=== PATIENT | male | born 1970 | race Caucasian/White ===

== ENCOUNTER 2017-02-06 23:12 | Inpatient (IN) | payer MEDICARE ==
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
[2017-02-07] MEDS ORDERED: MAGNESIUM HYDROXIDE 2,400 MG/10 ML CUP PO PRN (05:34)
[2017-02-07] MEDS ORDERED: MAG HYDROX/AL HYDROX/SIMETH 30 ML CUP PO PRN (05:34)
[2017-02-07] MEDS ORDERED: ZIPRASIDONE 20 MG VIAL IM PRN (05:34)
[2017-02-07] MEDS: LORazepam 1 MG TAB PO PRN ×2 (09:53→19:04)
[2017-02-07] MEDS: amLODIPine 10 MG TAB PO SCH (09:53)
[2017-02-07] MEDS: CHLORTHALIDONE 25 MG TAB PO SCH (09:53)
[2017-02-07] MEDS: NICOTINE 14MG/24HR PATCH TRANSDERM SCH (09:54)
[2017-02-07] MEDS: ATENOLOL 50 MG TAB PO SCH (09:54)
[2017-02-07] MEDS: HALOPERIDOL 5 MG TAB PO SCH (20:51)
[2017-02-07] MEDS: BENZTROPINE MESYLATE 1 MG TAB PO SCH (20:51)
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
[2017-02-08] MEDS: NICOTINE 14MG/24HR PATCH TRANSDERM SCH (09:13)
[2017-02-08] MEDS: CHLORTHALIDONE 25 MG TAB PO SCH (09:15)
[2017-02-08] MEDS: BENZTROPINE MESYLATE 1 MG TAB PO SCH ×2 (09:15→20:50)
[2017-02-08] MEDS: ATENOLOL 50 MG TAB PO SCH (09:15)
[2017-02-08] MEDS: amLODIPine 10 MG TAB PO SCH (09:15)
--- NOTE | 2017-02-08 09:15 | P.PN ---
Progress Note - Text Interval history: The patient is found at the medication window he follows me to an interview room. He reports that he slept last night appetite is stable. He reports attending some groups. He reports being compliant with medication. He is endorsing no side effects from his medication. He endorses no feelings of anger or irritability. Mental status exam: The patient is a male appearing his stated age he has long hair with frontal balding. He is dressed in his own clothing wearing a T-shirt and pajama pants. Eye contact is appropriate. He seated calmly in the chair he demonstrates no verbal or physical aggressiveness. He is endorsing no auditory or visual hallucinations he is endorsing no specific delusions there is no overt evidence of psychosis although he could be underreporting symptoms. He does not present hypomanic or manic. Affect is constricted. He does have spontaneous speech that is nonpressured and he does appropriately answer questions asked of him. He remains oriented to person place and date. Grooming is fair hygiene's impaired. He demonstrates no abnormal involuntary movements. Plan: The patient will continue on the Haldol and Cogentin. The presumption is is that he was not appropriately taking his medication as an outpatient although he states he did. We will continue to monitor him for safety and encourage his participation in the milieu. Vital signs reviewed they're within normal limits.
[2017-02-08] MEDS: LORazepam 1 MG TAB PO PRN ×2 (09:16→17:52)
[2017-02-08] MEDS: HALOPERIDOL 5 MG TAB PO SCH ×2 (09:45→20:50)
[2017-02-08 12:11] LABS: Basophils # (A) 0.1 k/uL (0-0.2); Basophils % (A) 1 %; CH 31.7; CHCM 34.2; Eosinophils # (A) 0.2 k/uL (0-0.7); Eosinophils % (A) 3 %; HCT 46.9 % (39.0-53.0); HDW 2.37; HGB 15.9 gm/dL (13.0-17.5); Luc # (Auto) 0.27; Luc % (Auto) 4; Lymphocytes # (A) 2.4 k/uL (1.0-4.8); Lymphocytes % (A) 31 %; MCH 31.5 pg (25.0-35.0); MCHC 33.9 g/dL (31.0-37.0); MCV 93.1 fL (80.0-100.0); Mean Platelet Volume 9.2; Monocytes # (A) 0.6 k/uL (0-1.0); Monocytes % (A) 8 %; Neutrophils # (A) 4.2 k/uL (1.3-7.7); Neutrophils % (A) 53 %; RBC 5.04 m/uL (4.30-5.90); RDW 12.8 % (11.5-15.5); WBC 7.8 k/uL (3.8-10.6); WBC (Perox) 7.41
[2017-02-08 12:24] LABS: ALT 39 U/L (21-72); AST 34 U/L (17-59); Alkaline Phosphatase 71 U/L (38-126); Anion Gap 11 mmol/L; Blood Urea Nitrogen 18 mg/dL (9-20); Calcium 9.8 mg/dL (8.4-10.2); Carbon Dioxide 29 mmol/L (22-30); Chloride 102 mmol/L (98-107); Glucose 86 mg/dL (74-99); Non-African American GFR(MDRD) >60 (>60 ml/min/1.73 sqM); Potassium 4.4 mmol/L (3.5-5.1); Sodium 142 mmol/L (137-145); Total Bilirubin 0.7 mg/dL (0.2-1.3); Total Protein 7.7 g/dL (6.3-8.2)
--- NOTE | 2017-02-08 12:24 | CONS ---
DATE OF CONSULTATION: CHIEF COMPLAINT: Schizophrenia and acute psychosis. HISTORY OF PRESENT ILLNESS: This is another admission for this 47-year-old white male. He has a long standing history of schizophrenia. He does well when he is on his medications. For some reason, apparently they were stopped. He also has a history of ADD, COPD and hypertension. REVIEW OF SYSTEMS: He has no current complaints of headaches, chest pain, abdominal pain, urinary complaints, etc. Past medical history, family history and personal and social histories reveal that he is not allergic to any medication and he is normally on benztropine 1 mg once a day, Adderall 20 mg twice a day, Tenoretic 50/25 one a day, Norvasc 10 once a day, Benazepril 20 mg once a day, haloperidol 5 mg twice a day, vitamin D and Klonopin 0.5 t.i.d. p.r.n. Otherwise has no medical problems. He does smoke heavily. PHYSICAL EXAMINATION: VITAL SIGNS: Motor 118/70, pulse of 80, respirations 16. He is afebrile. GENERAL: Appeared to be well-developed, well-nourished no acute distress. Skin color is normal. Skin is warm and dry. Lymph nodes are not enlarged. Head, ears, eyes, nose, mouth, and throat were normal. Neck veins not distended. Thyroid is not enlarged. Chest is clear. Cardiac exam is normal and there are no murmurs. Abdomen is soft, nontender with no masses. Extremities are normal. Neurologically, he is intact. IMPRESSION: 1. Acute psychosis. 2. Schizophrenia. 3. Hypertension. 4. Chronic obstructive pulmonary disease. RECOMMENDATION: None.
[2017-02-09] MEDS: NICOTINE 14MG/24HR PATCH TRANSDERM SCH (08:41)
[2017-02-09] MEDS: ATENOLOL 50 MG TAB PO SCH (08:42)
[2017-02-09] MEDS: CHLORTHALIDONE 25 MG TAB PO SCH (08:42)
[2017-02-09] MEDS: HALOPERIDOL 5 MG TAB PO SCH (08:42)
[2017-02-09] MEDS: amLODIPine 10 MG TAB PO SCH (08:42)
[2017-02-09] MEDS: BENZTROPINE MESYLATE 1 MG TAB PO SCH ×2 (08:42→21:17)
[2017-02-09] MEDS: ACETAMINOPHEN TAB 325 MG TAB PO PRN (09:03)
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
[2017-02-09] MEDS: LORazepam 1 MG TAB PO PRN (14:18)
[2017-02-09] MEDS: HALOPERIDOL 2 MG TAB PO SCH (21:17)
[2017-02-10] MEDS: ACETAMINOPHEN TAB 325 MG TAB PO PRN ×4 (00:17→18:36)
[2017-02-10] MEDS: CHLORTHALIDONE 25 MG TAB PO SCH (08:46)
[2017-02-10] MEDS: ATENOLOL 50 MG TAB PO SCH (08:46)
[2017-02-10] MEDS: BENZTROPINE MESYLATE 1 MG TAB PO SCH ×2 (08:46→20:36)
[2017-02-10] MEDS: HALOPERIDOL 2 MG TAB PO SCH ×2 (08:46→20:36)
[2017-02-10] MEDS: amLODIPine 10 MG TAB PO SCH (08:46)
[2017-02-10] MEDS: NICOTINE 14MG/24HR PATCH TRANSDERM SCH ×2 (08:49→10:11)
[2017-02-10] MEDS: LORazepam 1 MG TAB PO PRN (10:11)
--- NOTE | 2017-02-10 12:01 | P.PN ---
Progress Note - Text CLINICAL PROBLEMS: He is a 47-year-old man with history of schizophrenia and poor compliance with psychiatric treatment. He presented to unit under a court orders for examination but agreed to a voluntary admission. 24 HOUR EVENTS: He slept 5 hours last night. Appetite is been compliant with prescribed medications and posed no management problem. EXAMINATION: He was preoccupied about discharge. He asked when he can be discharged and assured me to continue with his oral medications. He was casually dressed but still malodorous. He made eye contact and attended the interview. He had a blunted but bright facial expression. We talked about transition from oral to long-acting and haloperidol. He stated that he would rather "take the pills" and doesn't want "injections". He minimizes the problems prior to admission alleging that his father initiated the conflict that led his sister to complete the Petition and requested the court order for examination. He was restless but he was not tremulous or fidgety. His speech was spontaneous with normal rate, rhythm and volume. His affect was blunted but stable and appropriate. He denied suicidal ideation or wishes. He denied homicidal ideation. He denied feeling hopeless, helpless or worthless. He ruminated about discharge and the cost of his prescription medications. He wanted assurance that I wouldn't be prescribing a generic haloperidol. He denied ideas of reference, thought insertion, thought broadcasting or thought control. He denied experiencing auditory or visual hallucinations and did not appear to be responding to internal stimuli. He shows poverty of content of of thought. PERTINENT DATA: His blood pressure this morning was 135/75. The licensed clinical social worker has not received a return call from his guardian. ASSESSMENT: He is denying positive symptoms of his illness but has continued negative symptoms including poverty of content. Overall, he appears moderately mentally ill and moderately improved from admission. He is less tremulous and akathetic since we decreased the Haldol to 8 mg per day. We need to guardian to begin the application for Medicaid in order to have him eligible for community mental health services. PLAN: Continue inpatient hospitalization. crop farm workers will continue to contact his guardian. Continue Haldol 4 mg twice a day and continued discussion to transition from oral to Haldol decanoate. Continue his hypertensive medications-Norvasc 10 mg daily, Tenormin 50 mg daily and hygroton 25 mg daily. Encourage continued participation in therapeutic groups and activities. Evaluate clinical status and response to treatment on a daily basis.
[2017-02-11] MEDS: LORazepam 1 MG TAB PO PRN ×3 (01:19→20:03)
[2017-02-11] MEDS: amLODIPine 10 MG TAB PO SCH (09:41)
[2017-02-11] MEDS: ATENOLOL 50 MG TAB PO SCH (09:41)
[2017-02-11] MEDS: HALOPERIDOL 2 MG TAB PO SCH ×2 (09:41→20:03)
[2017-02-11] MEDS: CHLORTHALIDONE 25 MG TAB PO SCH (09:41)
[2017-02-11] MEDS: NICOTINE 14MG/24HR PATCH TRANSDERM SCH (09:42)
[2017-02-11] MEDS: BENZTROPINE MESYLATE 1 MG TAB PO SCH ×2 (09:42→20:03)
--- NOTE | 2017-02-11 12:46 | P.PN ---
Progress Note - Text CLINICAL PROBLEMS: Schizophrenia, poor compliance with mental health treatment 24 HOUR EVENTS: He has been compliant with prescribed psychotropic medications. He is been no management problem and displayed no episodes of behavioral dyscontrol. He attended only one activity therapy group yesterday. He slept 6 hours last night. EXAMINATION: He presented as a casually groomed 47-year-old male who was pleasant on approach. He made eye contact and appeared to attend to interview. No distinguishing features or prominent physical abnormalities. He had a blunted facial expression. He was alert and oriented to person, place and time. He showed slight psychomotor retardation but no abnormal involuntary movements. He had no apparent tremor and he was not restless. His speech was spontaneous with decreased volume and rhythm. His affect was blunted but stable and appropriate. He denied suicidal ideation or wishes. He denied feeling hopeless, helpless or worthless. He did not express phobias, ideas reference, delusional thoughts or paranoid ideation. His thinking was concrete but his associations are coherent and logical. He denied hallucinations and did not appear to be responding to internal stimuli. He continues to remain resistant to a long-acting injectable antipsychotic PERTINENT DATA: His blood pressure this morning was 135/75 and 109/57 ASSESSMENT: He continued show negative symptoms of schizophrenia but no overt psychotic symptoms. Overall he appears mildly mentally ill and much improved from admission. PLAN: bunker worker to arrange for aftercare based on his Medicaid insurance to medical and most likely he will follow-up with [facility] outpatient mental health clinic. Continue Haldol 4 mg twice a day for treatment of schizophrenia. Continue Norvasc 10 mg daily, Tenormin 50 mg daily and Hygroton 25 mg daily for treatment of hypertension. We anticipate discharge tomorrow 02/12/2017. Encourage participation in therapeutic groups and activities. Evaluate clinical status response to treatment on a daily basis.
[2017-02-11] MEDS: ACETAMINOPHEN TAB 325 MG TAB PO PRN (16:26)
[2017-02-12 06:40] VITALS: BP 103/58; PULSE 59; RESP 16; TEMP 97.9
[2017-02-12] MEDS: NICOTINE 14MG/24HR PATCH TRANSDERM SCH (08:23)
[2017-02-12] MEDS: HALOPERIDOL 2 MG TAB PO SCH (08:23)
[2017-02-12] MEDS: CHLORTHALIDONE 25 MG TAB PO SCH (08:24)
[2017-02-12] MEDS: amLODIPine 10 MG TAB PO SCH (08:24)
[2017-02-12] MEDS: BENZTROPINE MESYLATE 1 MG TAB PO SCH (08:24)
[2017-02-12] MEDS: ATENOLOL 50 MG TAB PO SCH (08:24)
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
== END 2017-02-12 10:48 | disposition home or self-care (01) | DRG 885 ==
LOC: EC 23:12 → 3MHU 02-07 03:21
PROVIDERS: ADMIT Psychiatry & Neurology Psychiatry; ATTEND Psychiatry & Neurology Psychiatry
DX: F20.9 Schizophrenia, unspecified (principal); Z91.14 Patient's other noncompliance with medication regimen; I10 Essential (primary) hypertension; F17.200 Nicotine dependence, unspecified, uncomplicated; J44.9 Chronic obstructive pulmonary disease, unspecified; Z79.899 Other long term (current) drug therapy
CPT/HCPCS: 80053; 80306; 82075; 84443; 85025

== ENCOUNTER 2019-05-10 16:43 | Inpatient (IN) | payer MEDICARE ==
--- NOTE | 2019-05-10 17:36 | ED ---
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 Patient reportedly has a history of schizophrenia has been feeling paranoid, family is concerned about his well-being and home life. Patient himself has no complaints though information is very limited because he is paranoid and delusional at this time. He denies any drug or alcohol abuse. Denies any physical complaints - Related Data Home Medications Medication Instructions Recorded Confirmed No Known Home Medications 05/10/19 05/10/19 Allergies Allergy/AdvReac Type Severity Reaction Status Date / Time Unable to Assess Allergy Verified 05/10/19 16:50 Review of Systems ROS Statement: Those systems with pertinent positive or pertinent negative responses have been documented in the HPI. ROS Other: All systems not noted in ROS Statement are negative. Past Medical History Past Medical History: Hypertension History of Any Multi-Drug Resistant Organisms: None Reported Past Surgical History: No Surgical Hx Reported Past Psychological History: Anxiety, Depression, Schizophrenia Smoking Status: Current every day smoker General Exam Limitations: no limitations General appearance: alert, in no apparent distress Head exam: Present: atraumatic, normocephalic, normal inspection Eye exam: Present: normal appearance, PERRL, EOMI. Absent: scleral icterus, conjunctival injection, periorbital swelling ENT exam: Present: normal exam, normal oropharynx, mucous membranes moist Neck exam: Present: normal inspection, full ROM. Absent: tenderness, meningismus, lymphadenopathy Respiratory exam: Present: normal lung sounds bilaterally. Absent: respiratory distress, wheezes, rales, rhonchi, stridor Cardiovascular Exam: Present: normal rhythm, tachycardia, normal heart sounds. Absent: systolic murmur, diastolic murmur, rubs, gallop, clicks GI/Abdominal exam: Present: soft, normal bowel sounds. Absent: distended, tenderness, guarding, rebound, rigid Neurological exam: Present: alert, oriented X3, CN II-XII intact Psychiatric exam: Present: agitated, anxious Skin exam: Present: warm, dry, intact, normal color. Absent: rash Course Vital Signs 05/10/19 05/10/19 05/10/19 16:47 17:50 18:00 Temperature 97.7 F Pulse Rate 135 H Respiratory 16 18 16 Rate Blood Pressure 172/93 O2 Sat by Pulse 100 Oximetry Medical Decision Making - Medical Decision Making 49-year-old male presented for psychiatric evaluation. Patient was evaluated past and will be admitted for further treatment. Disposition Clinical Impression: Schizophrenia Disposition: TRANSFER TO PSYCH HOSP/UNIT Referrals: None,Stated [REFERRING] - 1-2 days
[2019-05-10] MEDS ORDERED: LORazepam 2 MG/ML INJ IM STA (21:11)
[2019-05-10] MEDS ORDERED: LORazepam 1 MG TAB PO PRN (22:50)
[2019-05-10] MEDS ORDERED: ZIPRASIDONE 20 MG VIAL IM PRN (22:50)
[2019-05-10] MEDS ORDERED: MAGNESIUM HYDROXIDE 2,400 MG/10 ML CUP PO PRN (22:50)
[2019-05-10] MEDS ORDERED: MAG HYDROX/AL HYDROX/SIMETH 30 ML CUP PO PRN (22:50)
[2019-05-10] MEDS ORDERED: LORazepam 2 MG/ML INJ IM PRN (22:55)
[2019-05-11] MEDS: NICOTINE 14MG/24HR PATCH TRANSDERM SCH (09:31)
[2019-05-11] MEDS ORDERED: HALOPERIDOL LACTATE 5 MG/ML 1 ML VIAL IM PRN (13:20)
--- NOTE | 2019-05-11 13:22 | P.HP ---
Psychiatric H&P - . H&P Date: 05/11/19 History & Physical: Allergies Allergy/AdvReac Type Severity Reaction Status Date / Time No Known Allergies Allergy Verified 05/10/19 23:00 Vital Signs Temp 97.5 F L 05/11/19 03:28 Pulse 90 05/11/19 03:28 Resp 18 05/11/19 03:28 BP 145/80 05/11/19 03:28 Pulse Ox 98 05/10/19 19:00 Intake & Output 05/10/19 05/11/19 05/11/19 18:59 06:59 18:59 Weight 90.718 kg 05/11/19 08:46 IDENTIFYING DATA: Patient is a 49-year-old male with a history of schizophrenia and known noncompliance. HPI: Patient presented to the hospital on a pickup order as patient was acting bizarre, delusional and paranoid at his home. It was noted that patient was not taking care of himself and his home was dirty and had flies inside of it. According to report, patient initially did not allow police into his home and was refusing to come to the hospital for an evaluation. Patient was seen this morning in his bed and was somewhat directable and agreeable to speak to continuity writer in the office. Patient appeared to be bizarre, disheveled and paranoid. Patient had loose associations, was disorganized in both speech and thought and was often illogical in his answers. Patient spoke about "government invasion" and about [place] and [place] not being trustworthy. Patient listed off multiple cities within [place] and then stated "they're all [employer]". Patient became more intrusive and aggressive during the interview as it progressed and started redirecting questions back to the continuity writer, asking continuity writer if he has heard voices and if he has thoughts of wanting to harm himself. Patient had a foul odor and appeared to not be taking care of his grooming and hygiene. Patient did not comment on his sleep or appetite or mood and instead rambled. C Vital Signs Temp 97.5 F L 05/11/19 03:28 Pulse 90 05/11/19 03:28 Resp 18 05/11/19 03:28 BP 145/80 05/11/19 03:28 Pulse Ox 98 05/10/19 19:00 Intake & Output 05/10/19 05/11/19 05/11/19 18:59 06:59 18:59 Weight 90.718 kg ould not assess for suicidal or homicidal ideations, auditory or visual hallucinations, substance use as patient abruptly ended interview and walked away. PAST PSYCHIATRIC HISTORY: Last admission was in 01/2017 on the [facility]. Was discharged on Haldol 4 mg twice a day and Cogentin 1 mg twice a day as patient developed akathisia and EPS. Patient refuses to comment on previous suicide attempts and outpatient psychiatric care. PMH: Hypertension and COPD ALLERGIES: NKDA CHEMICAL DEPENDENCY HISTORY: Unknown FAMILY PSYCHIATRIC/SUBSTANCE USE HISTORY: Unknown SOCIAL HISTORY: Patient claims he grew up in [place] however does not give any other details and is too disorganized at this time. MENTAL STATUS EXAM: General Appearance: Patient appears to be older than stated age, is alert however is intrusive and aggressive with continuity writer. Patient is disheveled and has a foul body odor. Behavior: Patient appears to be restless and in moderate distress. Speech: Patient's speech is disorganized and tangential. Mood/Affect: Patient reports their mood is fine, affect is incongruent and blunted Suicidality/Homicidality: Unable to assess Perceptions: Unable to assess Though content/process: There is significant evidence of delusional thinking, patient is tangential and illogical. Memory and concentration: AOX2, grossly intact for the purposes of this session. Cannot spell "WORLD" backwards and refused to participate. Judgment and insight: Poor STRENGTHS/WEAKNESSES: Stable living environment, poor insight and med noncompliance. INTELLECT: Below IMPRESSIONS: Acute Schizophrenia PLAN: -Patient is admitted under involuntary status to [facility] for stabilization of psychiatric symptoms and safety. Patient refused to sign voluntary form and medication consents. Certification completed by continuity writer and will be sent to court. -Will start patient on haloperidol by mouth liquid 5 mg twice a day for psychosis. Cogentin 0.5 mg twice a day for EPS prophylaxis. -Ativan and Haldol PRN for agitation/aggression -NRT was offered and patient declined -SW on board for discharge planning. Will await court proceedings, currently seeking a court order for inpatient/outpatient hospitalization and option for l erica-acting injection. 05/11/19 13:07 05/11/19 13:18 05/11/19 13:22
[2019-05-11] MEDS: BENZTROPINE MESYLATE 0.5 MG TAB PO SCH ×2 (14:04→21:47)
[2019-05-11] MEDS: HALOPERIDOL ORAL SOLN 10 MG/5 ML CUP PO SCH ×2 (14:04→21:48)
--- NOTE | 2019-05-11 16:32 | CONS ---
CONSULTATION CHIEF COMPLAINT: Acute psychotic event. HISTORY OF PRESENT ILLNESS: This is another admission for this 49-year-old white male with history of hypertension, COPD and schizophrenia. By history, it is not clear how he came to be in the hospital. He is somewhat agitated and incoherent. REVIEW OF SYSTEMS: He denies headaches, chest pain, shortness of breath, abdominal pain, vomiting, fever, chills, etc. Past medical history, family history, and personal and social history: Are unremarkable. He is not allergic to any medication. He is on levothyroxine 0.025 once a day, Haldol 2 mg twice a day, Tenoretic 50 once a day, amlodipine 10 mg once a day, benztropine 1 mg twice a day, vitamin D. He has not had any surgery. He is a persistent chronic heavy every day smoker. PHYSICAL EXAM: Blood pressure 130/90 with a pulse of 100, respirations 16, temperature 95. In general, he appeared to be well developed, well nourished, in no acute distress. He was somewhat disheveled. Head, ears, eyes, nose, mouth, and throat were normal. Neck veins are not distended. Thyroid is not enlarged. Chest is clear and cardiac exam is normal sinus rhythm. There are no murmurs. The abdomen is soft. Extremities normal. Neurologically he is intact. IMPRESSION: 1. Acute psychosis. 2. Chronic schizophrenia. 3. Chronic obstructive pulmonary disease. 4. Hypertension. 5. Hypothyroidism. RECOMMENDATION: None except to stay on his regular medications. MMODL / IJN: [id number] /
[2019-05-12] MEDS: HALOPERIDOL ORAL SOLN 10 MG/5 ML CUP PO SCH ×2 (10:13→20:28)
[2019-05-12] MEDS: BENZTROPINE MESYLATE 0.5 MG TAB PO SCH ×2 (10:13→20:28)
[2019-05-12] MEDS: NICOTINE 14MG/24HR PATCH TRANSDERM SCH (10:14)
--- NOTE | 2019-05-12 11:31 | P.PN ---
Progress Note - Text Progress Note Date: 05/12/19 Interval History: Patient was seen this morning and was agreeable to speak in his room at the [facility]. Patient appeared to be resting however was cooperative and agreeable to be interviewed. Patient states that he slept well last night and does not have any over night complaints. Patient continues to be somewhat tangential and illogical stating that he saw his sister yesterday and she was very angry at him and had veins coming out of her neck which scared him. Patient appears to be less delusional and paranoid today. He does not appear to be actively responding to internal stimuli. He claims his appetite is doing well. Patient's hygiene and grooming are still poor however patient was agreeable to take a shower later on today. At this time patient denies any suicidal or homical ideations, intent or plan. Patient denies any auditory, visual hallucinations and denies any paranoia or delusions. Patient denies any side effects from the medications and has been compliant with meds. Mental Status Exam: General Appearance: Patient appears to be older than stated age, is alert ho wever is intrusive and aggressive with service writer advisor. Patient is disheveled and has a foul body odor. Behavior: Patient was lying in bed and was more redirectable and calm today. Speech: Patient's speech is disorganized and tangential however is gradually improving. Mood/Affect: Patient reports their mood is "ok", affect is congruent and constricted. Suicidality/Homicidality: Denies any suicidal or homicidal ideations intent or plan. Perceptions: Patient denies any auditory or visual hallucinations. Vision is not actively responding to internal stimuli. Though content/process: Patient is mildly less delusional today however remains tangential and illogical. Memory and concentration: AOX3, grossly intact for the purposes of this session. Judgment and insight: Poor, improving IMPRESSIONS: Acute Schizophrenia PLAN: -Patient is admitted under involuntary status to [facility] for stabilization of psychiatric symptoms and safety. Certification completed by service writer advisor and will be sent to court, awaiting court hearing. -Medication : Will continue with haloperidol by mouth liquid 5 mg twice a day for psychosis. Cogentin 0.5 mg twice a day for EPS prophylaxis. Once stabilized on by mouth Haldol will give long-acting injection. -Encourage patient to shower later on today. Inform staff to give patient Haldol and soap -Ativan and Haldol PRN for agitation/aggression -NRT was offered and patient declined -Reordered blood work including CBC, comprehensive panel, lipid profile, TSH, hemoglobin A1c. Urinary analysis and urine drug screen pending. -SW on board for discharge planning. Will await court proceedings, currently seeking a court order for inpatient/outpatient hospitalization and option for long-acting injection. Patient will need to be connected with [facility] for closer follow-up and long-acting injection monthly.
[2019-05-12] MEDS: ACETAMINOPHEN TAB 325 MG TAB PO PRN (18:42)
[2019-05-12] MEDS ORDERED: LORazepam 1 MG TAB PO STA (20:35)
[2019-05-13] MEDS: NICOTINE 14MG/24HR PATCH TRANSDERM SCH (08:17)
[2019-05-13] MEDS: BENZTROPINE MESYLATE 0.5 MG TAB PO SCH (08:18)
[2019-05-13] MEDS: HALOPERIDOL ORAL SOLN 10 MG/5 ML CUP PO SCH ×2 (08:18→22:07)
--- NOTE | 2019-05-13 10:16 | P.PN ---
Progress Note - Text Progress Note Date: 05/13/19 Interval History: patient was seen this morning in the hallways and was agreeable to speak to wr iter in the common area. Patient appeared to be somewhat more directable and less irritable today. Patient initially answered most questions appropriately however continues to have a bizarre blank stare. Patient later in interview began becoming more tangential, illogical and bizarre in his thought content and speech. Patient continues to be delusional about his sister and continues to feel paranoid. Patient admits to taking aspirin which is helping him with his anxiety however when asked about his haloperidol patient evades the question. Patient continues to have poor insight and poor judgment. Patient's hygiene and grooming are still poor however patient states that he wants to take a shower at night. At this time patient denies any suicidal or homical ideations, intent or plan. Patient denies any auditory, visual hallucinations. Patient denies any side effects from the medications and has been compliant with meds. Mental Status Exam: General Appearance: Patient appears to be older than stated age, is alert however is intrusive and aggressive with aligner typewriter. Patient is disheveled and has a foul body odor. Behavior: Patient was sitting in chair, no agitation. Speech: Patient's speech is disorganized and tangential however is gradually improving. Mood/Affect: Patient reports their mood is "fine", affect is congruent and constricted. Suicidality/Homicidality: Denies any suicidal or homicidal ideations intent or plan. Perceptions: Patient denies any auditory or visual hallucinations. Vision is not actively responding to internal stimuli. Though content/process: Patient is mildly less delusional today however remains tangential and illogical. Memory and concentration: AOX3, grossly intact for the purposes of this session. Judgment and insight: Poor, improving IMPRESSIONS: Acute Schizophrenia PLAN: -Patient is admitted under involuntary status to [facility] for stabilization of psychiatric symptoms and safety. court date set for 05/20/2019 at 9 AM. -Medication : Will continue increasing to haloperidol by mouth liquid 7 mg twice a day for psychosis. increased Cogentin to 1 mg twice a day for EPS prophylaxis. Once stabilized on by mouth Haldol will give long-acting injection. -Encourage patient to shower later on today. Inform staff to give patient Haldol and soap -Ativan and Haldol PRN for agitation/aggression -patient refused blood work and urinalysis and UDS are pending. -SW on board for discharge planning. Will await court outcome, currently seeking a court order for inpatient/outpatient hospitalization and option for long-acting injection. Patient will need to be connected with [facility] for closer follow-up and long-acting injection monthly.
[2019-05-13] MEDS ORDERED: HALOPERIDOL ORAL SOLN 10 MG/5 ML CUP PO SCH (21:00)
[2019-05-13] MEDS: BENZTROPINE MESYLATE 1 MG TAB PO SCH (22:06)
[2019-05-14] MEDS ORDERED: HALOPERIDOL ORAL SOLN 10 MG/5 ML CUP PO SCH (09:00)
[2019-05-14] MEDS: NICOTINE 14MG/24HR PATCH TRANSDERM SCH (10:27)
[2019-05-14] MEDS: BENZTROPINE MESYLATE 1 MG TAB PO SCH ×2 (10:27→20:56)
[2019-05-14] MEDS: HALOPERIDOL ORAL SOLN 10 MG/5 ML CUP PO SCH ×2 (10:27→20:56)
[2019-05-14] MEDS: LORazepam 1 MG TAB PO PRN ×2 (13:19→20:56)
--- NOTE | 2019-05-14 19:09 | PN ---
PROGRESS NOTE DATE OF SERVICE: 05/14/2019. CHIEF COMPLAINT: The patient was admitted on a pick-up order. He was acting bizarre. He had delusional and paranoid thoughts. INTERVAL HISTORY: The patient continues to struggle. He wanders the unit. He continues to show poor self-care. He will walk around the halls and talk quite a bit, though does not really engage with anyone in any direct way. He can get intense and irritable at times. At other times he is more calm. When I talked with him, he seemed to present in a similar manner what Dr. Ingram noted in his progress note. Initially, he would respond to questions appropriately. He would be somewhat interactive and seemed to be able to stand track with the conversation. As the interview went on, he became more disorganized and also started showing irritability. He had some quite odd behavior by the end of the interview. He did not provide much meaningful information. He did not have any specific complaints relating to his medications. He asked about discharge planning in made a statement several time that "the lady I talked to, said I could leave." When I asked him about the deferral, he said that he did not understand what the occupational health nurse supervisor was saying. MENTAL STATUS: Patient initially was somewhat appropriate in his interaction in the interview though then began to digress. His thoughts became tangential. He had some bizarre behavior such as getting quite intense. He would take the tips of his fingers and bend them in an extension manner saying something about there are no bones there or there are some unusual bones there. He would do the same with his collarbone saying that something unusual happened that the collarbone was put in him. He repeated this several times. It was unclear what the meaning of any of it was. It is noted that after the interview when I saw him in the [place], he came up to me and said the same thing about the bones. His affect was intense. His mood dysphoric. He was moderately distressed. He continued with delusions. ASSESSMENT: I will continue the current diagnosis and treatment plan. The patient has been titrating up on Haldol and currently is on 7 mg liquid twice a day. He seems to report that he tolerates the medication. He continues to show significant thought disorder. He did not seem to follow the conversation when I talked about his medications. We will continue to focus on stabilization and discharge planning. MMODL / IJN: [id number] / MADI
--- NOTE | 2019-05-14 19:09 | PN ---
PAT / IJN: [id number] / MTDD
[2019-05-15] MEDS: HALOPERIDOL ORAL SOLN 10 MG/5 ML CUP PO SCH ×2 (10:26→21:49)
[2019-05-15] MEDS: NICOTINE 14MG/24HR PATCH TRANSDERM SCH (10:26)
[2019-05-15] MEDS: BENZTROPINE MESYLATE 1 MG TAB PO SCH ×2 (10:27→21:49)
[2019-05-15] MEDS: LORazepam 1 MG TAB PO PRN ×2 (10:28→21:49)
--- NOTE | 2019-05-15 19:59 | PN ---
PROGRESS NOTE DATE OF SERVICE: 05/15/2019. CHIEF COMPLAINT: The patient was admitted on a pick-up order. He was acting bizarre. He had delusional paranoid thoughts. INTERVAL HISTORY: Patient has been doing fair. He had a quiet evening last night. He wanders the unit at times. At other times, he will seem to withdraw to his room. He talks some of the time when he is in the day area, though he does not necessarily engage in any conversation with others. At times, he will make some random comments that are hard to discern meaning. He was overall quiet without significant behavior issues. It was documented that he slept some 6 hours last night as of 430 in the morning. Today, he has been up. He wandered some. When I saw him he was in his room. He declined to come down to the office. He seemed to have been sleeping, before I came in he woke up. He was somewhat interactive. He reported no problems or concerns. He was fairly appropriate in how he interacted. He appears to tolerate his psychotropic medications, had no complaints about his medicine. MENTAL STATUS: Patient gave fair eye contact. Psychomotor activity was slowed. Speech was monotone. He answered questions appropriately. His thoughts were clear. His affect flat. His mood reserved. It was difficult to assess any level of distress. He appeared to show some response to internal stimuli when seen on the unit. ASSESSMENT: I will continue the current diagnosis and treatment plan. I will continue psychotropic medications the same. I briefly reviewed medication issues with the patient in regard to side effects and monitoring parameters. The patient did not seem too inclined to want to continue the discussion. We will continue to focus on stabilization and discharge planning. MMODL / IJN: [id number] /
[2019-05-16] MEDS: NICOTINE 14MG/24HR PATCH TRANSDERM SCH (08:09)
[2019-05-16] MEDS: HALOPERIDOL ORAL SOLN 10 MG/5 ML CUP PO SCH ×2 (08:09→21:36)
[2019-05-16] MEDS: BENZTROPINE MESYLATE 1 MG TAB PO SCH ×2 (08:09→21:36)
[2019-05-16] MEDS: LORazepam 1 MG TAB PO PRN ×2 (08:25→21:37)
--- NOTE | 2019-05-16 10:35 | P.PN ---
Progress Note - Text Progress Note Date: 05/16/19 Interval History: Patient was seen in his room this morning which had a particular foul body odor and appeared to be disorganized. Patient was staring out of the window and states that he was "just look into cars described by". Patient appeared to be somewhat more appropriate with ghost writer and calmer/directable. Patient answered most questions appropriately initially during the interview however became irritable and aggressive with ghost writer when ghost writer asked about medications, patient replied in a threatening voice "the doing just fine anymore stupid questions". Patient states his mood is good and claims that he is sleeping throughout the night. Patient denies going to many groups however claims that he is eating as [employer]. Patient was encouraged to shower daily, patient agreed. Patient continues to be somewhat delusional/paranoid which is gradually improving.. At this time patient denies any suicidal or homical ideations, intent or plan. Patient denies any auditory, visual hallucinations and denies any paranoia or delusions. Patient denies any side effects from the medications and has been compliant with meds. Mental Status Exam: General Appearance: Patient appears to be older than stated age, is alert however is intrusive and aggressive with ghost writer. Patient has a foul body odor. Behavior: Patient was sitting in chair, no agitation. Speech: Patient's speech is disorganized however is gradually improving. Mood/Affect: Patient reports their mood is "good", affect is congruent and constricted. Suicidality/Homicidality: Denies any suicidal or homicidal ideations intent or plan. Perceptions: Patient denies any auditory or visual hallucinations. Vision is not actively responding to internal stimuli. Though content/process: Patient is mildly less delusional today however remains tangential Memory and concentration: AOX3, grossly intact for the purposes of this session. Judgment and insight: Poor, improving mildly IMPRESSIONS: Schizophrenia PLAN: -Patient is admitted under involuntary status to [facility] for stabilization of psychiatric symptoms and safety. court date set for 05/20/2019 at 9 AM. -Medication : Will continue increasing to haloperidol to by mouth liquid 7 + 10 mg twice a day for psychosis. Continue with Cogentin to 1 mg twice a day for E PS prophylaxis. Once stabilized on by mouth Haldol will give long-acting injection. -Encourage patient to shower later on today. Inform staff to give patient towel and soap -Ativan and Haldol PRN for agitation/aggression -patient refused blood work and urinalysis and UDS -SW on board for discharge planning. Will await court outcome, currently seeking a court order for inpatient/outpatient hospitalization and option for long-acting injection. Patient will need to be connected with [facility] for closer follow-up and long-acting injection monthly.
[2019-05-17] MEDS: NICOTINE 14MG/24HR PATCH TRANSDERM SCH (09:48)
[2019-05-17] MEDS: BENZTROPINE MESYLATE 1 MG TAB PO SCH ×2 (09:48→22:23)
[2019-05-17] MEDS: HALOPERIDOL ORAL SOLN 10 MG/5 ML CUP PO SCH ×2 (09:49→22:23)
[2019-05-17] MEDS: LORazepam 1 MG TAB PO PRN ×2 (09:52→22:44)
--- NOTE | 2019-05-17 10:11 | P.PN ---
Progress Note - Text Progress Note Date: 05/17/19 Interval History: Patient was seen in his room this morning and was agreeable to speak to commercial underwriter at bedside. Patient continues to have a poor body odor. Patient appeared to be slightly more appropriate and cooperative with commercial underwriter. Patient answered most questions appropriately. Patient states that he slept well last night, throughout the night. He states that staff and other residents are treating him well. Patient continues to have poor insight however is more directable. Patient did not endorse any delusions at this time or paranoia. Patient was more logical and goal oriented. He states that he is taking his medications however when asked what is helping him with, patient refers to Ativan and completely ignores haloperidol. He states that he is going to some groups in the afternoon because he likes to play the games. At this time patient denies any suicidal or homical ideations, intent or plan. Patient denies any auditory, visual hallucinations and denies any paranoia or delusions. Patient denies any side effects from the medications and has been compliant with meds. Mental Status Exam: General Appearance: Patient appears to be older than stated age, is alert however is less intrusive and aggressive with commercial underwriter. Patient has a foul body odor. Behavior: Patient was sitting by the bed, no agitation. Speech: Patient's speech is disorganized however is gradually improving. Mood/Affect: Patient reports their mood is "fine", affect is congruent and constricted. Suicidality/Homicidality: Denies any suicidal or homicidal ideations intent or plan. Perceptions: Patient denies any auditory or visual hallucinations. Patient is not actively responding to internal stimuli. Though content/process: Patient is mildly less delusional today however is less tangential and illogical Memory and concentration: AOX3, grossly intact for the purposes of this session. Judgment and insight: Poor, improving mildly IMPRESSIONS: Schizophrenia PLAN: -Patient is admitted under involuntary status to [facility]HU for stabilization of psychiatric symptoms and safety. court date set for 05/20/2019 at 9 AM. -Medication : Will continue with haloperidol to by mouth liquid 7 + 10 mg twice a day for psychosis. Continue with Cogentin to 1 mg twice a day for EPS prophylaxis. Once stabilized on by mouth Haldol will give long-acting injection. -Encourage patient to shower. -Ativan and Haldol PRN for agitation/aggression -SW on board for discharge planning. Will await court outcome, currently seeking a court order for inpatient/outpatient hospitalization and option for long-acting injection. Patient will need to be connected with [facility] for closer follow-up and long-acting injection monthly.
[2019-05-18] MEDS: HALOPERIDOL ORAL SOLN 10 MG/5 ML CUP PO SCH ×2 (09:00→21:59)
[2019-05-18] MEDS: BENZTROPINE MESYLATE 1 MG TAB PO SCH ×2 (09:00→21:59)
[2019-05-18] MEDS: NICOTINE 14MG/24HR PATCH TRANSDERM SCH (09:00)
[2019-05-18] MEDS: LORazepam 1 MG TAB PO PRN ×2 (09:04→21:59)
--- NOTE | 2019-05-18 09:53 | P.PN ---
Progress Note - Text Progress Note Date: 05/18/19 Interval History: Patient was seen in his room and was agreeable to speak to video game script writer. Patient co ntinues to have fell body odor. Patient claims that he likes to stay in his room in the morning and not go to groups claiming that "I don't want a year but other people's problems I'm sick of that" as he describes wanting to go to the later groups which involved games and playing cards. Patient denied any overnight events and denies any complaints at this time. Patient continues to be somewhat delusional and spoke about [place] and Alejandro plotting against others. Patient often rambles at times and is illogical. Patient has improved insight and judgment. He states that he is sleeping throughout the night and taking his medications. He denies any side effects to the medications at this time. At this time patient denies any suicidal or homical ideations, intent or plan. Patient denies any auditory, visual hallucinations. Mental Status Exam: General Appearance: Patient appears to be older than stated age, is alert however is less intrusive and aggressive with video game script writer. Patient has a foul body odor. Behavior: Patient was sitting by the bed, no agitation. Speech: Patient's speech and thoughts are disorganized however is gradually improving. Mood/Affect: Patient reports their mood is "ok", affect is congruent and constricted. Suicidality/Homicidality: Denies any suicidal or homicidal ideations intent or plan. Perceptions: Patient denies any auditory or visual hallucinations. Patient is not actively responding to internal stimuli. Though content/process: Patient is mildly less delusional today however is less tangential and illogical Memory and concentration: AOX3, grossly intact for the purposes of this session. Judgment and insight: Poor, improving mildly IMPRESSIONS: Schizophrenia PLAN: -Patient is admitted under involuntary status to MHU for stabilization of p sychiatric symptoms and safety. Court date set for 05/20/2019 at 9 AM. -Medication : Will increase haloperidol to 10 mg twice a day for psychosis. Continue with Cogentin to 1 mg twice a day for EPS prophylaxis. Once stabilized on by mouth Haldol will give long-acting injection. -Encouraged patient to shower. Once again will ask unit staff to give patient Haldol and soap later on this evening. -Ativan and Haldol PRN for agitation/aggression -SW on board for discharge planning. Will await court outcome, currently seeking a court order for inpatient/outpatient hospitalization and option for l erica-acting injection. Patient will need to be connected with [facility] for closer follow-up and long-acting injection monthly.
[2019-05-19] MEDS: BENZTROPINE MESYLATE 1 MG TAB PO SCH ×2 (08:07→20:29)
[2019-05-19] MEDS: NICOTINE 14MG/24HR PATCH TRANSDERM SCH (08:07)
[2019-05-19] MEDS: HALOPERIDOL ORAL SOLN 10 MG/5 ML CUP PO SCH ×2 (08:08→20:29)
[2019-05-19] MEDS: LORazepam 1 MG TAB PO PRN ×2 (08:12→20:29)
--- NOTE | 2019-05-19 09:10 | P.PN ---
Progress Note - Text Progress Note Date: 05/19/19 Interval History: Patient was seen in the hallways however was not directable and appeared to be agitated, wanting to speak to the customs entry writer at the nurse's station. Patient pounded his fists on the table several times and was demanding the reason for going to court. Patient continues to have disorganized speech, tangential and illogical. Patient spoke about how he was older than the court system and also spoke about present and [place]. Patient was asked several times to leave the nurses station and to speak to customs entry writer in his room or in the office and patient refused stating "know were not continued do what you want to do". Patient rephrased all the other questions that the customs entry writer had for him, appeared to get angrier during the conversation and left down the hallway. Patient did not endorse any suicidal or homical ideations, intent or plan. He did not endorse any auditory, visual hallucinations. Patient continues to be delusional. Patient has been compliant with the medications and denied any side effects. Patient's hygiene and grooming continue to be poor and did not shower yesterday. Mental Status Exam: General Appearance: Patient appears to be older than stated age, is alert however is less intrusive and aggressive with customs entry writer. Patient has a foul body odor. Behavior: Patient was standing by the nurse's station, appeared to be somewhat agitated. Speech: Patient's speech and thoughts are disorganized. Mood/Affect: Patient reports their mood is "angry", affect is congruent and constricted. Suicidality/Homicidality: Denies any suicidal or homicidal ideations intent or plan. Perceptions: Patient denies any auditory or visual hallucinations. Patient is not actively responding to internal stimuli. Though content/process: Patient is more delusional today and tangential, illogical Memory and concentration: AOX3, grossly intact for the purposes of this session. Judgment and insight: Poor IMPRESSIONS: Schizophrenia PLAN: -Patient is admitted under involuntary status to [facility]HU for stabilization of psychiatric symptoms and safety. Court date set for 05/20/2019 at 9 AM. -Medication : Will continue with haloperidol to 10 mg twice a day for psychosis. Continue with Cogentin to 1 mg twice a day for EPS prophylaxis. Once stabilized on by mouth Haldol will give long-acting injection. -Will consider adding Depakote tomorrow if patient continues to be agitated/aggressive/labile.. -Encouraged patient to shower. Once again will ask unit staff to give patient a towel and soap later on this evening. -Ativan and Haldol PRN for agitation/aggression -SW on board for discharge planning. Will await court outcome, currently seeking a court order for inpatient/outpatient hospitalization and option for long-acting injection. Patient will need to be connected with [facility] for closer follow-up and long-acting injection monthly.
[2019-05-20] MEDS: NICOTINE 14MG/24HR PATCH TRANSDERM SCH (08:32)
[2019-05-20] MEDS: HALOPERIDOL ORAL SOLN 10 MG/5 ML CUP PO SCH ×2 (08:33→20:10)
[2019-05-20] MEDS: BENZTROPINE MESYLATE 1 MG TAB PO SCH ×2 (08:33→20:10)
[2019-05-20] MEDS: LORazepam 1 MG TAB PO PRN ×3 (08:34→20:14)
[2019-05-20] MEDS ORDERED: HALOPERIDOL DECANOATE 100 MG/ML 1 ML VIAL IM STA (12:59)
--- NOTE | 2019-05-20 13:03 | P.PN ---
Progress Note - Text Progress Note Date: 05/20/19 Interval History: Patient was seen this morning wandering the hallways prior to going to court. Patient states she is going to argue his point in court and began to be tangential and illogical with resume writer talking about the court system and other delusions. Patient appeared to have poor hygiene and grooming this morning claims he did not shower. Patient denied any other complaints was more directable. He states that he slept well last night however gets angry at certain people. He states his energy level and mood are good. At this time patient denies any suicidal or homical ideations, intent or plan. Patient denies any auditory, visual hallucinations and denies any paranoia or delusions. Patient denies any side effects from the medications and has been compliant with meds. Mental Status Exam: General Appearance: Patient appears to be older than stated age, is alert however is less intrusive with resume writer. Patient has a foul body odor. Behavior: Patient was standing by the nurse's station, appeared to be somewhat agitated. Speech: Patient's speech and thoughts are disorganized. Mood/Affect: Patient reports their mood is "ok", affect is congruent and constricted. Suicidality/Homicidality: Denies any suicidal or homicidal ideations intent or plan. Perceptions: Patient denies any auditory or visual hallucinations. Patient is not actively responding to internal stimuli. Though content/process: Patient is more delusional today and tangential, illogical Memory and concentration: AOX3, grossly intact for the purposes of this session. Judgment and insight: Poor, improving mildly IMPRESSIONS: Schizophrenia PLAN: -Patient is admitted under involuntary status to [facility]HU for stabilization of psychiatric symptoms and safety. Court date set for today, will await result of order. -Medication : Will continue with haloperidol liquid to 10 mg twice a day for psychosis. Continue with Cogentin to 1 mg twice a day for EPS prophylaxis. Ordered for Haldol CHANG to be given today, 100 mg IM dose. Will reevaluate in additional dose. -Will add Depakene syrup 500 mg daily for mood stabilization. -Encouraged patient to shower. -Ativan and Haldol PRN for agitation/aggression -SW on board for discharge planning. Will await court outcome, currently seeking a court order for inpatient/outpatient hospitalization and option for long-acting injection. Patient will need to be connected with [facility] for closer follow-up and long-acting injection monthly.
[2019-05-20] MEDS: VALPROIC ACID ORAL SOLN 250 MG/5 ML CUP PO SCH (14:44)
[2019-05-21] MEDS: NICOTINE 14MG/24HR PATCH TRANSDERM SCH ×2 (09:13→19:56)
[2019-05-21] MEDS: HALOPERIDOL ORAL SOLN 10 MG/5 ML CUP PO SCH ×2 (09:14→19:51)
[2019-05-21] MEDS: BENZTROPINE MESYLATE 1 MG TAB PO SCH ×2 (09:14→19:51)
[2019-05-21] MEDS: VALPROIC ACID ORAL SOLN 250 MG/5 ML CUP PO SCH (09:14)
[2019-05-21] MEDS: LORazepam 1 MG TAB PO PRN ×2 (09:17→19:52)
--- NOTE | 2019-05-21 11:56 | P.PN ---
Progress Note - Text Progress Note Date: 05/21/19 Interval history: Patient was seen in his room this morning and was agreeable to speak to engineering writer. Patient slept throughout the night while and states that he feels tired this morning after he took his morning medications of Depakene. Patient was calmer and more cooperative with engineering writer today and stated that he was going to get up soon and didn't walk around the unit for his exercise. Patient appeared to be less bizarre today continues to have poor grooming and poor hygiene. At this time patient denies any suicidal or homicidal ideations intent or plan. Denies any Auditory or visual hallucinations. Patient denies any side effects from the medications and has been compliant with meds. Mental status exam: General Appearance: [Patient appears to be stated age is alert, pleasant, and cooperative.] Continues to have poor grooming and poor hygiene. Behavior: [No agitated behavior. Patient is calm and directable] Speech: Patient's speech is fluent and nonpressured. Mood/Affect: Mood is improving, affect is congruent and constricted. Suicidality/Homicidality: Patient denies having any suicidal or homicidal ideation intent or plan. Perceptions: Patient denies any auditory or visual hallucinations. Though content/process: Endorsed less delusional thinking today. Appears to be more goal oriented and less illogical. Memory and concentration: AOX3, grossly intact for the purposes of this session Judgment and insight: improving, mildly Assessment/Plan: Continue with current diagnosis. Patient continues to meet criteria for inpatient psychiatric admission for symptom stabilization and safety. Will switch Depakene to Depakote ER, 750 mg daily at bedtime for mood stabilization. Patient to get his second dose of Haldol long-acting on Thursday. Monitor for medication compliance and for any psychotropic medication side effects. Will continue to monitor ongoing response to treatment.
[2019-05-22] MEDS: NICOTINE 14MG/24HR PATCH TRANSDERM SCH (07:53)
[2019-05-22] MEDS: BENZTROPINE MESYLATE 1 MG TAB PO SCH ×2 (07:53→21:02)
[2019-05-22] MEDS: HALOPERIDOL ORAL SOLN 10 MG/5 ML CUP PO SCH ×2 (07:53→08:12)
[2019-05-22] MEDS: LORazepam 1 MG TAB PO PRN ×2 (07:54→21:02)
--- NOTE | 2019-05-22 10:53 | P.PN ---
Progress Note - Text Progress Note Date: 05/22/19 Interval history: Patient was seen in his room this morning and was agreeable to speak to ad writer. Patient appeared to be gazing out of the window and states that he was looking at people in cars go by. Patient was a lot more directable today and appeared to be calmer. Patient continued to be somewhat tangential and rambled at times. Patient requested if he could have Willger Josh ordered to the hospital as he wanted burgers for lunch and dinner. Patient appeared to be less bizarre today continues to have poor grooming and poor hygiene. He states that he slept well last night. At this time patient denies any suicidal or homicidal ideations intent or plan. Denies any Auditory or visual hallucinations. Patient denies any side effects from the medications and has been compliant with meds. Mental status exam: General Appearance: Patient appears to be stated age is alert, pleasant, and cooperative. Continues to have poor grooming and poor hygiene. Behavior: No agitated behavior. Patient is calm and directable Speech: Patient's speech is fluent and nonpressured. Mood/Affect: Mood is improving, affect is congruent and constricted. Suicidality/Homicidality: Patient denies having any suicidal or homicidal ideation intent or plan. Perceptions: Patient denies any auditory or visual hallucinations. Though content/process: Endorsed less delusional thinking today. Appears to be more goal oriented and less illogical. Memory and concentration: AOX3, grossly intact for the purposes of this session Judgment and insight: improving, mildly Assessment/Plan: Continue with current diagnosis. Patient continues to meet criteria for inpatient psychiatric admission for symptom stabilization and safety. Continue with Depakote ER, 750 mg daily at bedtime for mood stabilization. Patient to get his second dose of Haldol long-acting on Thursday. Monitor for medication compliance and for any psychotropic medication side effects. Will continue to monitor ongoing response to treatment.
[2019-05-22] MEDS: DIVALPROEX ER 250 MG TAB.ER.24H PO SCH (21:02)
[2019-05-22] MEDS: ACETAMINOPHEN TAB 325 MG TAB PO PRN (22:31)
[2019-05-23] MEDS: BENZTROPINE MESYLATE 1 MG TAB PO SCH ×2 (08:08→20:42)
[2019-05-23] MEDS: NICOTINE 14MG/24HR PATCH TRANSDERM SCH (08:08)
[2019-05-23] MEDS: DIVALPROEX ER 250 MG TAB.ER.24H PO SCH (08:08)
[2019-05-23] MEDS: LORazepam 1 MG TAB PO PRN ×2 (08:09→20:44)
[2019-05-23] MEDS: HALOPERIDOL ORAL SOLN 10 MG/5 ML CUP PO SCH (08:09)
--- NOTE | 2019-05-23 09:30 | P.PN ---
Progress Note - Text Progress Note Date: 05/23/19 Interval History: Patient was seen this morning in his room and was agreeable to seek to keno writer/runner. Patient appeared to have mildly improved hygiene and grooming states that he had a shower last night and "feels better" with regards to his mood and affect. Patient appeared to be more cooperative and directable this morning and less tangential. Patient claims that he slept throughout the night with no problems. He states that he continues to feel cold in the room. He states his energy level and mood are good. At this time patient denies any suicidal or homical ideations, intent or plan. Patient denies any auditory, visual hallucinations and denies any paranoia or delusions. Patient denies any side effects from the medications and has been compliant with meds. Mental Status Exam: General Appearance: Patient appears to be older than stated age, is alert, cooperative. Patient has improved hygiene and grooming. Behavior: Patient was standing by the nurse's station, appeared to be somewhat agitated. Speech: Patient's speech and thoughts were organized. Mood/Affect: Patient reports their mood is "fine", affect is congruent and constricted. Suicidality/Homicidality: Denies any suicidal or homicidal ideations intent or plan. Perceptions: Patient denies any auditory or visual hallucinations. Patient is not actively responding to internal stimuli. Though content/process: Patient is more delusional today and tangential, illogical Memory and concentration: AOX3, grossly intact for the purposes of this session. Judgment and insight: Fair, improving mildly IMPRESSIONS: Schizophrenia PLAN: -Patient continues to meet criteria for inpatient psychiatric hospitalization under involuntary status to [facility] for stabilization of psychiatric symptoms and safety. Patient is currently under court order at this time. -Medication : Will decrease haloperidol to 5 mg twice a day for psychosis. Continue with Cogentin to 1 mg twice a day for EPS prophylaxis. Ordered second Haldol CHANG to be given today, 100 mg IM dose. Patient will need to 200 mg dose every 4 weeks, next dose due on 06/17/2019. -Will continue with Depakote ER 750 mg daily for mood stabilization. -Encouraged patient to shower regularly and attend groups. -Ativan and Haldol PRN for agitation/aggression -SW on board for discharge planning. Patient will need to be connected with [facility] for closer follow-up and long-acting injection monthly. Likely discharge this week.
[2019-05-23] MEDS ORDERED: HALOPERIDOL DECANOATE 100 MG/ML 1 ML VIAL IM ONE (19:00)
[2019-05-23] MEDS: HALOPERIDOL 5 MG TAB PO SCH (20:42)
[2019-05-24] MEDS: DIVALPROEX ER 250 MG TAB.ER.24H PO SCH (09:17)
[2019-05-24] MEDS: HALOPERIDOL 5 MG TAB PO SCH (09:17)
[2019-05-24] MEDS: BENZTROPINE MESYLATE 1 MG TAB PO SCH (09:18)
[2019-05-24] MEDS: LORazepam 1 MG TAB PO PRN ×2 (09:20→19:01)
[2019-05-24] MEDS: NICOTINE 14MG/24HR PATCH TRANSDERM SCH (09:29)
--- NOTE | 2019-05-24 09:44 | P.PN ---
Progress Note - Text Progress Note Date: 05/24/19 Interval History: Patient was seen this morning in the hallways on the phone as he was yelling at the other person demanding them not to touch his money and was speaking loudly about his bills and being ripped off. Patient appeared to be irritable this morning and agitated pacing the hallways yelling at nurses and pointing his finger up people. Patient was approached by screen writer and patient became even more aggressive and confrontational. Patient was tangential, illogical and spoke about aerobics and Muslims along with making grandiose statements about his genitals. Patient appeared to be disheveled with poor hygiene and grooming and was able to walk away from the conversation back to his room. He was unable to assess the patient was homicidal or suicidal this morning. Patient did not endorse any voices or visual hallucinations. Patient did receive his second Haldol Decanoate injection last night 100 mg. Patient also took his morning medications. Mental Status Exam: General Appearance: Patient appears to be older than stated age, is alert, uncooperative and hostile this morning. Patient has poor hygiene and grooming. Behavior: Patient was standing by the nurse's station, agitated. Speech: Patient's speech and thoughts were organized. Mood/Affect: Patient reports their mood is "just fine", affect is congruent and agitated Suicidality/Homicidality: Unable to assess any suicidal or homicidal ideations intent or plan. Perceptions: Patient denies any auditory or visual hallucinations. Patient is not actively responding to internal stimuli. Though content/process: Patient is more delusional today and tangential, illogical and acting hostile/aggressive. Memory and concentration: AOX3, grossly intact for the purposes of this session. Judgment and insight: Poor IMPRESSIONS: Schizophrenia PLAN: -Patient continues to meet criteria for inpatient psychiatric hospitalization under involuntary status to [facility] for stabilization of psychiatric symptoms and safety. Patient is currently under court order at this time which was generated on 05/20/2019. -Medication : Will increase haloperidol by mouth to 10 mg twice a day for psychosis. Continue with Cogentin to 1 mg twice a day for EPS prophylaxis. Patient received second Haldol CHANG on 05/23/2019, 100 mg IM dose. Patient will need to 200 mg dose at least every 4 weeks, next dose due on 06/17/2019. -Will increase Depakote ER to 1000 mg daily for mood stabilization. -Encourage patient to shower regularly and attend groups. -Ativan and Haldol PRN for agitation/aggression -SW on board for discharge planning. Patient will need to be connected with [facility] for closer follow-up and long-acting injection monthly.
[2019-05-24] MEDS: ACETAMINOPHEN TAB 325 MG TAB PO PRN (18:42)
[2019-05-24] MEDS: diphenhydrAMINE 50 MG/ML 1 ML VIAL IM SCH (19:27)
[2019-05-24] MEDS ORDERED: HALOPERIDOL 5 MG TAB PO SCH (21:00)
[2019-05-25] MEDS: diphenhydrAMINE 50 MG/ML 1 ML VIAL IM SCH (02:41)
[2019-05-25] MEDS: diphenhydrAMINE 50 MG CAP PO SCH ×2 (02:41→09:15)
[2019-05-25] MEDS ORDERED: diphenhydrAMINE 50 MG/ML 1 ML VIAL ONE (04:35)
[2019-05-25] MEDS: DIVALPROEX ER 500 MG TAB.ER.24H PO SCH (09:15)
[2019-05-25] MEDS: NICOTINE 14MG/24HR PATCH TRANSDERM SCH (09:15)
--- NOTE | 2019-05-25 13:14 | P.PN ---
Progress Note - Text Progress Note Date: 05/25/19 Interval History: Patient was seen this morning laying down on his bed in his room. Patient jackie eared to be more cooperative this morning and was apologetic her yesterday what happened when he yelled and was frustrated at the nurse's desk. Patient claims that he was having some tremor in his arm last night and attributed it to Cogentin, Benadryl was ordered instead and patient was able to sleep the rest of the night and upon visual examination today patient has mild resting tremor in both hands bilaterally. Patient claims he feels much better this morning and is more logical and less disorganized. Patient appeared to be disheveled with poor hygiene and grooming. This morning he denies any suicidal or homicidal ideations intent or plan. Patient did not endorse any voices or visual hallucinations. He states that he slept okay last night and has fair energy and was going to attend groups today. Mental Status Exam: General Appearance: Patient appears to be older than stated age, is alert, more cooperative and directable this morning. Patient has poor hygiene and grooming. Behavior: Patient was sitting on the side of his bed, no agitation. Speech: Patient's speech and thoughts were organized. Mood/Affect: Patient reports their mood is "good", affect is congruent and agitated Suicidality/Homicidality: Does not endorse any suicidal or homicidal ideations intent or plan. Perceptions: Patient denies any auditory or visual hallucinations. Patient is not actively responding to internal stimuli. Though content/process: Patient is less delusional today and tangential, patient is calmer and more logical. Memory and concentration: AOX3, grossly intact for the purposes of this session. Judgment and insight: Poor, improving mildly IMPRESSIONS: Schizophrenia PLAN: -Patient continues to meet criteria for inpatient psychiatric hospitalization under involuntary status to [facility] for stabilization of psychiatric symptoms and safety. Patient is currently under court order at this time which was generated on 05/20/2019. -Medication : Will discontinue haloperidol PO at this time as patient has received 2 doses of long-acting Haldol injection and is not required at this time. Discontinued Cogentin and replaced with Benadryl for EPS prophylaxis. We'll continue to monitor patient's mild tremor in his hands bilaterally. -Patient received second Haldol CHANG on 05/23/2019, 100 mg IM dose. Patient will need to 200 mg dose at least every 4 weeks, next dose due on 06/17/2019. -Will continue with Depakote ER to 1000 mg daily for mood stabilization. -Encourage patient to shower regularly and attend groups. -Ativan and Haldol PRN for agitation/aggression -SW on board for discharge planning. Patient will need to be connected with [facility] for closer follow-up and long-acting injection monthly.
[2019-05-25] MEDS: LORazepam 1 MG TAB PO PRN (18:56)
[2019-05-25] MEDS: diphenhydrAMINE 25 MG CAP PO SCH (22:21)
[2019-05-26] MEDS: LORazepam 1 MG TAB PO PRN ×2 (05:22→18:42)
[2019-05-26] MEDS: NICOTINE 14MG/24HR PATCH TRANSDERM SCH (09:29)
[2019-05-26] MEDS: DIVALPROEX ER 500 MG TAB.ER.24H PO SCH ×2 (09:30→21:31)
[2019-05-26] MEDS: diphenhydrAMINE 25 MG CAP PO SCH ×2 (09:30→21:31)
--- NOTE | 2019-05-26 10:13 | P.PN ---
Progress Note - Text Progress Note Date: 05/26/19 Interval History: Patient was seen this morning laying down on his bed in his room and initially was somewhat receptive and agreeable to speak to keno writer / runner. Patient initially was cooperative this morning with the keno writer / runner however was focused on discharge. Patient stated that he wanted to go home however keno writer / runner claimed that patient needed more time in the hospital on the medications and it was felt that patient may benefit from an [facility] home or [facility]dc instead and patient quickly jumped out of bed and started yelling at keno writer / runner. Patient was illogical and hostile/aggressive and intrusive. Patient swore at keno writer / runner several times and showed him his finger and started to bend it. Patient stood out and got very close to keno writer / runner so keno writer / runner left the room and and keno writer / runner attempted to de-escalate patient however patient continued to be agitated and yelled at keno writer / runner speaking illogically and disorganized in thought with multiple delusions. Patient eventually calmed down and return back to his room and did not wish to speak to write her any longer. Patient appeared to be disheveled with poor hygiene and grooming. Mental Status Exam: General Appearance: Patient appears to be older than stated age, is alert, hostile and aggressive this morning. Patient has poor hygiene and grooming. Behavior: Patient was sitting on the side of his bed, got up and became agitated with keno writer / runner. Speech: Patient's speech and thoughts were disorganized. Mood/Affect: Patient reports their mood is "mad", affect is congruent and agitated Suicidality/Homicidality: Does not endorse any suicidal or homicidal ideations intent or plan. Perceptions: Patient denies any auditory or visual hallucinations. Patient is not actively responding to internal stimuli. Though content/process: Patient is more delusional today and tangential, patient's thought process is disorganized. Multiple delusions Memory and concentration: AOX3, grossly intact for the purposes of this session. Judgment and insight: Poor, no insight IMPRESSIONS: Schizophrenia PLAN: -Patient continues to meet criteria for inpatient psychiatric hospitalization under involuntary status to MHU for stabilization of psychiatric symptoms and safety. Patient is currently under court order at this time which was generated on 05/20/2019. -Medication : Will continue holding off on haloperidol PO at this time as patient has received 2 doses of long-acting Haldol injection and is not required at this time. Continue with Benadryl for EPS prophylaxis. Patient's tremor appeared to be less prominent today upon visual inspection. We'll continue to monitor patient's mild tremor in his hands bilaterally. -Patient received second Haldol CHANG on 05/23/2019, 100 mg IM dose. Patient will need to 200 mg dose at least every 4 weeks, next dose due on 06/17/2019. -Will continue increasing Depakote ER to 1000 mg daily + 500 mg nightly for mood stabilization. Ordered a Depakene level tomorrow morning prior to a.m. dose. -Encouraging patient to shower regularly and attend groups. -Ativan and Haldol PRN for agitation/aggression -SW on board for discharge planning. Patient will need to be connected with [facility] for closer follow-up and long-acting injection monthly. Patient will likely need placement at an [facility] home.
[2019-05-27] MEDS: NICOTINE 14MG/24HR PATCH TRANSDERM SCH (08:11)
[2019-05-27] MEDS: DIVALPROEX ER 500 MG TAB.ER.24H PO SCH ×2 (08:11→21:14)
[2019-05-27] MEDS: diphenhydrAMINE 25 MG CAP PO SCH ×2 (08:11→21:14)
--- NOTE | 2019-05-27 09:38 | P.PN ---
Progress Note - Text Progress Note Date: 05/27/19 Interval History: Patient was seen this morning laying down in his bed and was agreeable to speak to commercial real estate underwriter. Patient appeared to be much more calmer and cooperative this morning. Patient answered most questions appropriately. he continues to have limited insight into his medications and treatment and when asked about how his medications are helping him, patient only talked about Cogentin and how was making him feel "shaky". patient showed improved distress tolerance and was less intrusive this morning. Patient appeared to be less delusional this morning and claim that he would like to take a shower later on today. At this time patient denies any auditory or visual hallucinations. He denies any suicidal or homicidal ideations intent or plan. Patient denies any adverse effects from the medications and claims to be compliant. Mental Status Exam: General Appearance: Patient appears to be older than stated age, is alert, and directable. Patient continues to have poor hygiene and grooming. Behavior: Patient was lying in bed with no agitation. Speech: Patient's speech and thoughts wermore logical this morning Mood/Affect: Patient reports their mood is fine ", affect is congruent and constricted\\ Suicidality/Homicidality: Does not endorse any suicidal or homicidal ideations intent or plan. Perceptions: Patient denies any auditory or visual hallucinations. Patient is not actively responding to internal stimuli. Though content/process: Patient is less delusional today and tangential, patient's thought process is more disorganized. Memory and concentration: AOX3, grossly intact for the purposes of this session. Judgment and insight: Poor Insight improving mildly IMPRESSIONS: Schizophrenia PLAN: -Patient continues to meet criteria for inpatient psychiatric hospitalization under involuntary status to MHU for stabilization of psychiatric symptoms and safety. Patient is currently under court order at this time which was generated on 05/20/2019. -Medication : Continue with Benadryl for EPS prophylaxis. can decrease this if needed over the weekend. Patient's tremor appeared to be less prominent today upon visual inspection. We'll continue to monitor patient's mild tremor in his hands bilaterally. -Patient received second Haldol CHANG on 05/23/2019, 100 mg IM dose. Patient will need to receive 200 mg dose at least every 4 weeks, next dose due on 06/17/2019. -Will continue with Depakote ER to 1000 mg daily + 500 mg nightly for mood stabilization. Will follow-up with valproic acid level. -Encouraging patient to shower regularly and attend groups. -Ativan and Haldol PRN for agitation/aggression -SW on board for discharge planning. Patient will need to be connected with [facility] for closer follow-up and long-acting injection monthly. Patient will likely need placement at an [facility] home.
[2019-05-27] MEDS: ACETAMINOPHEN TAB 325 MG TAB PO PRN ×2 (11:08→15:00)
[2019-05-27] MEDS: LORazepam 1 MG TAB PO PRN ×2 (14:33→21:14)
[2019-05-28] MEDS: NICOTINE 14MG/24HR PATCH TRANSDERM SCH ×2 (08:08→16:28)
[2019-05-28] MEDS: DIVALPROEX ER 500 MG TAB.ER.24H PO SCH ×2 (08:09→20:27)
[2019-05-28] MEDS: diphenhydrAMINE 25 MG CAP PO SCH ×2 (08:09→20:27)
[2019-05-28] MEDS: LORazepam 1 MG TAB PO PRN ×3 (08:09→20:28)
[2019-05-28] MEDS: ACETAMINOPHEN TAB 325 MG TAB PO PRN (16:28)
[2019-05-29] MEDS: NICOTINE 14MG/24HR PATCH TRANSDERM SCH (08:24)
[2019-05-29] MEDS: DIVALPROEX ER 500 MG TAB.ER.24H PO SCH ×2 (08:24→20:20)
[2019-05-29] MEDS: diphenhydrAMINE 25 MG CAP PO SCH ×2 (08:25→20:48)
[2019-05-29] MEDS: LORazepam 1 MG TAB PO PRN ×2 (08:26→19:04)
[2019-05-29] MEDS: ACETAMINOPHEN TAB 325 MG TAB PO PRN (16:31)
--- NOTE | 2019-05-29 18:17 | P.PN ---
Progress Note - Text Progress Note Date: 05/29/19 IDENTIFICATION DATA: Patient is a 49-year-old male with a history of schizophrenia and known noncompliance. INTERVAL HISTORY: He reports being compliant with is medications. No side effects reported. He says his mediations keep him at ease. He reports good sleep and appetite. He follows unit routine. He says he has overcome his depression and states he no longer feels sad or hopeless. MENTAL STATUS EXAMINATION: 49 year old male, dressed casually, appears in marginal grooming and hygiene. His speech and thought process are linear and goal directed. His mood is reported as good and affect constricted. The patient is alert and oriented 4 and in no apparent distress. thought content is negative for suicidal or homicidal ideation. Denies auditory, visual hallucinations and paranoid ideations. insight and judgment are limited. ASSESSMENT Schizophrenia PLAN: Continue current treatment
--- NOTE | 2019-05-29 19:02 | P.PN ---
Progress Note - Text Progress Note Date: 05/28/19 IDENTIFICATION DATA: 49-year-old male with a history of schizophrenia admitted to mental health unit due to worsening delusions and acting bizzare. INTERVAL HISTORY: Patient was seen today. He reports being compliant with his medications. He says cogentin has caused him to have shaky hands and is no longer taking it. He still has tremors of his hands. He reports feeling calmer on his current medications. He reports following unit routine. No behavioral problems reported. He claims to have been eating well and sleeping good. MENTAL STATUS EXAMINATION: 49 year old man, appears disheveled with poor hygiene. Maintains good eye contact. speech and thought process are goal directed. Mood is reported as good and affect constricted. Denies current auditory or visual hallucinations and paranoid ideations. he is alert and oriented x 4. Denies suicidal and homicidal ideations. insight and judgment are improving. ASSESSMENT Schizophrenia PLAN: Continue Haloperidol , depakote and benadryl.
[2019-05-30] MEDS: LORazepam 1 MG TAB PO PRN ×3 (06:56→18:25)
[2019-05-30] MEDS: NICOTINE 14MG/24HR PATCH TRANSDERM SCH (09:12)
[2019-05-30] MEDS: DIVALPROEX ER 500 MG TAB.ER.24H PO SCH ×2 (09:12→21:03)
[2019-05-30] MEDS: diphenhydrAMINE 25 MG CAP PO SCH (09:12)
[2019-05-30] MEDS ORDERED: diphenhydrAMINE 25 MG CAP PO STA (09:47)
--- NOTE | 2019-05-30 09:55 | P.PN ---
Progress Note - Text Progress Note Date: 05/30/19 Interval History: Patient was seen this morning laying down in his bed and was agreeable to speak to specification writer. Patient appeared to be much more calmer and cooperative this morning. Patient answered most questions appropriately and was agreeable to shake specification writer's hand. Patient has shown improvement in his distress tolerance and intrusiveness. Patient has some mild improvement in his insight to his treatment and also his goals once discharged. Patient was less delusional today and denied any paranoia. He states that he slept well last night and has been feeling "much better". At this time patient denies any auditory or visual hallucinations. He denies any suicidal or homicidal ideations intent or plan. Patient admitted to have a resting tremor in both his hands and requested Benadryl as he claimed that it helped with that in the past. It was explained to patient that upon discharge he may be able to have either his dose of Haldol reduced or switched onto another long-acting neuroleptic to help improve his tremor, patient verbally understood and agreed. Mental Status Exam: General Appearance: Patient appears to be older than stated age, is alert, and directable. Patient continues to have poor hygiene and grooming. Behavior: Patient was lying in bed with no agitation. Mild tremor in upper extremities bilaterally. Speech: Patient's speech and thoughts were more logical this morning Mood/Affect: Patient reports their mood is "alright ", affect is congruent and constricted Suicidality/Homicidality: Does not endorse any suicidal or homicidal ideations intent or plan. Perceptions: Patient denies any auditory or visual hallucinations. Patient is not actively responding to internal stimuli. Though content/process: Patient is less delusional today and tangential, patient's thought process is more organized. Memory and concentration: AOX3, grossly intact for the purposes of this session. Judgment and insight: Poor Insight, improving mildly IMPRESSIONS: Schizophrenia PLAN: -Patient continues to meet criteria for inpatient psychiatric hospitalization under involuntary status to MHU for stabilization of psychiatric symptoms and safety. Patient is currently under court order at this time which was generated on 05/20/2019. -Medication : Will increase Benadryl for EPS prophylaxis to 50 mg twice a day. Patient's tremor appeared to be unchanged since last examination on Thursday. We'll continue to monitor patient's mild tremor in his hands bilaterally. It was explained to patient that he may need to be switched onto another neuroleptic or have his Haldol dose reduced upon discharge. No signs of tardive dyskinesia present. -Patient received second Haldol CHANG on 05/23/2019, 100 mg IM dose. Patient will need to receive 200 mg dose at least every 4 weeks, next dose due on 06/17/2019. -Will continue with Depakote ER to 1000 mg daily + 500 mg nightly for mood stabilization. -Encouraging patient to shower regularly and attend groups. -Ativan and Haldol PRN for agitation/aggression -SW on board for discharge planning. Patient will need to be connected with [facility] for closer follow-up and long-acting injection monthly. Guardian attempting to find a retirement for patient.
[2019-05-30] MEDS: ACETAMINOPHEN TAB 325 MG TAB PO PRN (14:27)
[2019-05-30] MEDS: diphenhydrAMINE 50 MG CAP PO SCH (21:03)
[2019-05-31] MEDS: DIVALPROEX ER 500 MG TAB.ER.24H PO SCH ×2 (08:21→20:10)
[2019-05-31] MEDS: diphenhydrAMINE 50 MG CAP PO SCH ×2 (08:21→20:10)
[2019-05-31] MEDS: NICOTINE 14MG/24HR PATCH TRANSDERM SCH (08:21)
--- NOTE | 2019-05-31 10:17 | P.PN ---
Progress Note - Text Progress Note Date: 05/31/19 Interval History: Patient was seen this morning laying down in his bed and was agreeable to speak to copywriter, sat up on the side of the bed. Patient appeared to be calm and cooperative this morning. Patient answered most questions appropriately this morning. Patient continues to show improvement in his distress tolerance and intrusiveness. He was less delusional today and denied any paranoia and did not offer any complaints overnight. He states that he slept well last night on his current medications and claims that his hand tremor is improved greatly on Benadryl. At this time patient denies any auditory or visual hallucinations. He denies any suicidal or homicidal ideations intent or plan. Patient's resting tremor appears to be greatly improved since yesterday. Patient asked today about discharge and where he will be going and states that she would need to be talking with his guardian sister as to where she would like him to go. Patient asked to use the phone afterwards and left the conversation. Mental Status Exam: General Appearance: Patient appears to be older than stated age, is alert, and directable. Patient hygiene and grooming have improved. Behavior: Patient was lying in bed with no agitation. bilateral upper extremity tremor has improved since yesterday. Speech: Patient's speech and thoughts were more logical this morning Mood/Affect: Patient reports their mood "good", affect is congruent and constricted Suicidality/Homicidality: Does not endorse any suicidal or homicidal ideations intent or plan. Perceptions: Patient denies any auditory or visual hallucinations. Patient is not actively responding to internal stimuli. Though content/process: Patient does not endorse any delusions today, patient's thought process is more organized. Memory and concentration: AOX3, grossly intact for the purposes of this session. Judgment and insight: Poor Insight, improving mildly IMPRESSIONS: Schizophrenia PLAN: -Patient continues to meet criteria for inpatient psychiatric hospitalization under involuntary status to MHU for stabilization of psychiatric symptoms and safety. Patient is currently under court order at this time which was generated on 05/20/2019. -Medication : Will continue with Benadryl for EPS prophylaxis 50 mg twice a day. Patient's tremor has improved since yesterday. We'll continue to monitor patient's mild tremor in his hands bilaterally. It was explained to patient that he may need to be switched onto another neuroleptic or have his Haldol dose reduced upon discharge. No signs of tardive dyskinesia present. -Patient received second Haldol CHANG on 05/23/2019, 100 mg IM dose. Patient will need to receive 200 mg dose at least every 4 weeks, next dose due on 06/17/2019. -Will continue with Depakote ER to 1000 mg nightly and 500 daily for mood stabilization. -Encouraging patient to shower regularly and attend groups. -Ativan and Haldol PRN for agitation/aggression -SW on board for discharge planning. Patient will need to be connected with [facility] for closer follow-up and long-acting injection monthly. Guardian attempting to find a shelter for patient. Patient may be discharged upon finding placement
[2019-05-31] MEDS: LORazepam 1 MG TAB PO PRN ×2 (14:14→20:10)
[2019-05-31] MEDS: ACETAMINOPHEN TAB 325 MG TAB PO PRN ×2 (17:31→20:11)
[2019-06-01] MEDS: NICOTINE 14MG/24HR PATCH TRANSDERM SCH (08:18)
[2019-06-01] MEDS: diphenhydrAMINE 50 MG CAP PO SCH ×2 (08:19→21:44)
[2019-06-01] MEDS: LORazepam 1 MG TAB PO PRN ×2 (08:20→14:34)
--- NOTE | 2019-06-01 08:55 | P.PN ---
Progress Note - Text Progress Note Date: 06/01/19 Interval History: Patient was seen this morning in his room and was agreeable to speak to pattern chart writer. Patient appeared to be calm and directable and was also polite. Patient answered most questions appropriately this morning and had an improved affect. In offer no overnight complaints and states that he slept very well and feels like he has good energy this morning. Patient also states that his tremor in his arms are improving with the Benadryl and patient was educated on the fact that his tremor will need to be monitored and medications will need to be adjusted in the future if needed. At this time patient denies any auditory or visual hallucinations. He denies any suicidal or homicidal ideations intent or plan. Patient's resting tremor appears to be mildly improved since yesterday. No evidence of tardive dyskinesia at this time. Patient asked about his discharge this morning and he was informed of the need for his guardian to approve a place for him to go along with social work before he can be discharged. Mental Status Exam: General Appearance: Patient appears to be older than stated age, is alert, and directable. Patient hygiene and grooming have improved. Behavior: Patient was lying in bed with no agitation. bilateral upper extremity tremor has improved since yesterday. Speech: Patient's speech and thoughts were more logical this morning Mood/Affect: Patient reports their mood "ok", affect is congruent and constricted Suicidality/Homicidality: Does not endorse any suicidal or homicidal ideations intent or plan. Perceptions: Patient denies any auditory or visual hallucinations. Patient is not actively responding to internal stimuli. Though content/process: Patient does not endorse any delusions today, patient's thought process is more organized. Memory and concentration: AOX3, grossly intact for the purposes of this session. Judgment and insight: improving mildly IMPRESSIONS: Schizophrenia PLAN: -Patient continues to meet criteria for inpatient psychiatric hospitalization under involuntary status to MHU for stabilization of psychiatric symptoms and safety. Patient is currently under court order at this time which was generated on 05/20/2019. -Medication : Will continue with Benadryl for EPS prophylaxis 50 mg twice a day. Patient's tremor has been mildly improved since yesterday. We'll continue to monitor patient's mild tremor in his hands bilaterally. It was explained to patient that he may need to be switched onto another neuroleptic or have his Haldol dose reduced upon discharge. No signs of tardive dyskinesia present. -Patient received second Haldol CHANG on 05/23/2019, 100 mg IM dose. Patient will need to receive 200 mg dose at least every 4 weeks, next dose due on 06/17/2019. -Depakote ER to 1000 mg nightly and will attempt to decrease morning Depakote to 250 daily for mood stabilization to help improve tremor. -Encouraging patient to shower regularly and attend groups. -Ativan and Haldol PRN for agitation/aggression -SW on board for discharge planning. Patient will need to be connected with [facility] for closer follow-up and long-acting injection monthly. Guardian attempting to find a senior living for patient. Patient may be discharged upon finding placement
[2019-06-01] MEDS ORDERED: DIVALPROEX ER 500 MG TAB.ER.24H PO SCH (09:00)
[2019-06-01] MEDS: ACETAMINOPHEN TAB 325 MG TAB PO PRN (14:33)
[2019-06-01] MEDS: DIVALPROEX ER 500 MG TAB.ER.24H PO SCH (21:44)
[2019-06-02] MEDS: DIVALPROEX ER 250 MG TAB.ER.24H PO SCH (07:50)
[2019-06-02] MEDS: NICOTINE 14MG/24HR PATCH TRANSDERM SCH (07:50)
[2019-06-02] MEDS: diphenhydrAMINE 50 MG CAP PO SCH (07:50)
[2019-06-02] MEDS: LORazepam 1 MG TAB PO PRN ×3 (07:50→18:46)
[2019-06-02] MEDS ORDERED: diphenhydrAMINE 25 MG CAP PO STA (12:39)
--- NOTE | 2019-06-02 12:44 | P.PN ---
Progress Note - Text Progress Note Date: 06/02/19 Interval History: Patient was seen this morning wandering the hallways and was agreeable to speak to contract technical writer. Patient appeared to be calm and directable and was also polite this morning. Patient continues to be appropriate and has a brighter affect. He offer no overnight complaints and states that his mood is "good". Patient also states that his tremor in his arms are improving with the Benadryl however is requesting an increase in his dose to 75 mg twice a day. He states that he slept well last night and showered yesterday and also shaved. At this time patient denies any auditory or visual hallucinations. He denies any suicidal or homicidal ideations intent or plan. Patient's resting tremor appears to be mildly improved since yesterday. No evidence of tardive dyskinesia at this time. Patient asked about his discharge several times to contract technical writer Mental Status Exam: General Appearance: Patient appears to be older than stated age, is alert, and directable. Patient hygiene and grooming have improved. Behavior: Patient was sitting in chair with no agitation. bilateral upper ex tremity tremor has improved mildly Speech: Patient's speech and thoughts were more logical this morning Mood/Affect: Patient reports their mood "fine", affect is congruent and constricted Suicidality/Homicidality: Does not endorse any suicidal or homicidal ideations intent or plan. Perceptions: Patient denies any auditory or visual hallucinations. Patient is not actively responding to internal stimuli. Though content/process: Patient does not endorse any delusions today, patient's thought process is more organized. Memory and concentration: AOX3, grossly intact for the purposes of this session. Judgment and insight: improving mildly IMPRESSIONS: Schizophrenia PLAN: -Patient continues to meet criteria for inpatient psychiatric hospitalization under involuntary status to MHU for stabilization of psychiatric symptoms and safety. Patient is currently under court order at this time which was generated on 05/20/2019. -Medication : Will continue increasing Benadryl for EPS prophylaxis to 75 mg twice a day. Patient's tremor has been mildly improved since yesterday. We'll continue to monitor patient's mild tremor in his hands bilaterally. It was explained to patient that he may need to be switched onto another neuroleptic or have his Haldol dose reduced upon discharge. No signs of tardive dyskinesia present. -Patient received second Haldol CHANG on 05/23/2019, 100 mg IM dose. Patient will need to receive 200 mg dose at least every 4 weeks, next dose due on 06/17/2019. -Continue with Depakote ER 1000 mg nightly and will continue with Depakote to 250 daily for mood stabilization to help improve tremor. -Encouraging patient to shower regularly and attend groups. -Ativan and Haldol PRN for agitation/aggression -SW on board for discharge planning. Patient will need to be connected with [facility] for closer follow-up and long-acting injection monthly. Guardian apparently has found a attentional detention and is waiting for approval. Patient may be discharged upon finding placement
--- NOTE | 2019-06-02 18:50 | XR ---
EXAMINATION TYPE: XR chest 2V DATE OF EXAM: 06/02/2019 COMPARISON: NONE HISTORY: Home placement TECHNIQUE: Frontal and lateral views of the chest are obtained. FINDINGS: Heart and mediastinum are normal. Lungs are clear. Diaphragm is normal. Bony thorax appear s normal. IMPRESSION: Normal chest
[2019-06-02] MEDS: diphenhydrAMINE 25 MG CAP PO SCH (21:07)
[2019-06-02] MEDS: DIVALPROEX ER 500 MG TAB.ER.24H PO SCH (21:08)
[2019-06-03] MEDS: DIVALPROEX ER 250 MG TAB.ER.24H PO SCH (08:15)
[2019-06-03] MEDS: diphenhydrAMINE 25 MG CAP PO SCH ×2 (08:15→21:26)
[2019-06-03] MEDS: NICOTINE 14MG/24HR PATCH TRANSDERM SCH (08:15)
--- NOTE | 2019-06-03 11:28 | P.PN ---
Progress Note - Text Progress Note Date: 06/03/19 Interval History: Patient was seen this morning in his bed and was agreeable to speak to literary writer. Patient appeared to be calm and directable and was also polite this morning and answered all questions appropriately. Patient continues to have a brighter affect and has improved insight into his condition. He offer no overnight complaints and states that his tremors have improved once again on the increase in his benadryl. He states that his mood is "good" today and was hoping to hear better news about his discharge plan as he states that he spoke with his sister yesterday. He states that he slept well last night and showered yesterday as well. At this time patient denies any auditory or visual hallucinations. He denies any suicidal or homicidal ideations intent or plan. Patient's resting tremor appears to be subsided at this time. No evidence of tardive dyskinesia at this time. Mental Status Exam: General Appearance: Patient appears to be older than stated age, is alert, and directable. Patient hygiene and grooming have improved. Behavior: Patient was sitting in chair with no agitation. bilateral upper extremity tremor has subsided. Speech: Patient's speech and thoughts were more logical this morning Mood/Affect: Patient reports their mood "all right", affect is congruent and constricted Suicidality/Homicidality: Does not endorse any suicidal or homicidal ideations intent or plan. Perceptions: Patient denies any auditory or visual hallucinations. Patient is not actively responding to internal stimuli. Though content/process: Patient does not endorse any delusions today, patient's thought process is more organized. Memory and concentration: AOX3, grossly intact for the purposes of this session. Judgment and insight: improving mildly IMPRESSIONS: Schizophrenia PLAN: -Patient continues to meet criteria for inpatient psychiatric hospitalization under involuntary status to [facility] for stabilization of psychiatric symptoms and safety. Patient is currently under court order at this time which was generated on 05/20/2019. -Medication : Will continue with Benadryl for EPS prophylaxis to 75 mg twice a day. Patient's tremor appears to have subsided today. No signs of tardive dyskinesia present. -Patient received second Haldol CHANG on 05/23/2019, 100 mg IM dose. Patient will need to receive 200 mg dose at least every 4 weeks, next dose due on 06/17/2019. -Continue with Depakote ER 1000 mg nightly and will continue with Depakote to 250 daily for mood stabilization to help improve tremor. -Encouraging patient to shower regularly and attend groups. -Ativan and Haldol PRN for agitation/aggression -SW on board for discharge planning. Patient will need to be connected with [facility] for closer follow-up and long-acting injection monthly. Guardian apparently has found a attentional intermediate and is awaiting for approval. Likely discharge Thursday or Thursday.
[2019-06-03] MEDS: LORazepam 1 MG TAB PO PRN ×2 (12:06→18:36)
[2019-06-03] MEDS: ACETAMINOPHEN TAB 325 MG TAB PO PRN (16:17)
[2019-06-03] MEDS: DIVALPROEX ER 500 MG TAB.ER.24H PO SCH (21:26)
[2019-06-04] MEDS: LORazepam 1 MG TAB PO PRN ×2 (05:44→13:18)
[2019-06-04] MEDS: diphenhydrAMINE 25 MG CAP PO SCH ×2 (08:00→20:08)
[2019-06-04] MEDS: DIVALPROEX ER 250 MG TAB.ER.24H PO SCH (08:01)
[2019-06-04] MEDS: NICOTINE 14MG/24HR PATCH TRANSDERM SCH (08:03)
[2019-06-04] MEDS: diphenhydrAMINE 50 MG/ML 1 ML VIAL IM PRN (14:18)
--- NOTE | 2019-06-04 18:57 | P.PN ---
Progress Note - Text Progress Note Date: 06/04/19 Interval history: Patient seen in [facility] today. Reports that he slept well last night and seems to be eating well. He does describe that his mood is doing better, he seems to complain of some anxiety. He does not verbalize any adverse psychotropic medication side effects. Mental status exam: He is alert and cooperative with the interview. His speech is fluent, not rapid or pressured. Thought processes organized. His mood overall seems to be improved. He does not report any hallucinations. He does not verbalize any thoughts of harm to self or others. He does not show any agitation. Plan: Patient will be maintained on current psychotropic medication regimen. Continue to monitor for his ongoing response to treatment monitor for any medication side effects.
[2019-06-04] MEDS: DIVALPROEX ER 500 MG TAB.ER.24H PO SCH (20:08)
[2019-06-05] MEDS: DIVALPROEX ER 250 MG TAB.ER.24H PO SCH (08:15)
[2019-06-05] MEDS: diphenhydrAMINE 25 MG CAP PO SCH ×2 (08:15→20:07)
[2019-06-05] MEDS: NICOTINE 14MG/24HR PATCH TRANSDERM SCH (08:16)
--- NOTE | 2019-06-05 12:12 | P.PN ---
Progress Note - Text Progress Note Date: 06/05/19 Interval history: Patient is seen in [facility] again today. Sleep and appetite seem to be stable. He does not voice any adverse psychotropic medication side effects. He does describe having a dream that seemed to be a recurring thing that his sister made a comment about his niece wetting her pants and he had a dream about it. He makes a request for the Nicorette gum instead of the nicotine patch, relays that the patch leaves a red scot on his skin. Mental status exam: He is alert and cooperative with the interview. His speech is fluent, not rapid or pressured. Thought processes are organized. His mood overall he describes as better. He does describe some anxiety upon awakening in the morning. He denies any thoughts of harm to self or others. He does not report any auditory or visual hallucinations. Plan: Patient will be maintained on current psychotropic medication regimen. He will be monitored regarding any medication side effects and monitor his ongoing response to treatment.
[2019-06-05] MEDS: NICOTINE POLACRILEX 2 MG GUM BUCCAL PRN ×3 (12:47→20:08)
[2019-06-05] MEDS: LORazepam 1 MG TAB PO PRN (15:19)
[2019-06-05] MEDS: DIVALPROEX ER 500 MG TAB.ER.24H PO SCH (20:06)
[2019-06-06] MEDS: NICOTINE POLACRILEX 2 MG GUM BUCCAL PRN ×3 (04:25→15:25)
[2019-06-06] MEDS: DIVALPROEX ER 250 MG TAB.ER.24H PO SCH (08:01)
[2019-06-06] MEDS: diphenhydrAMINE 25 MG CAP PO SCH ×2 (08:01→21:40)
[2019-06-06] MEDS: LORazepam 1 MG TAB PO PRN ×2 (09:21→13:30)
--- NOTE | 2019-06-06 09:31 | P.PN ---
Progress Note - Text Progress Note Date: 06/06/19 Interval History: Patient was seen this morning waiting for his morning meds and was agreeable to speak to typewriter mechanic. Patient continues to be calm and directable and was also polite this morning. Patient answered all questions appropriately. Patient continues to have improved insight into his condition and demonstrates fair judgment and good distress tolerance. He offer no overnight complaints and states that his weekend went well. He also states that his tremors have improved on benadryl. Today he stated that he feels "a little bit anxious" and would like to request some Ativan at the nurse's station. He states that his mood is "alright" today. He states that he spoke with his sister who claims that she has an appointment to meet with the assisted on Thursday that he'll be going to. He states that he slept well last night. At this time patient denies any auditory or visual h allucinations. He denies any suicidal or homicidal ideations intent or plan. Patient's resting tremor appears to be subsided at this time. No evidence of tardive dyskinesia at this time. Mental Status Exam: General Appearance: Patient appears to be older than stated age, is alert, and directable. Patient hygiene and grooming have improved. Behavior: Patient was sitting in chair with no agitation. bilateral upper extremity tremor has subsided. Speech: Patient's speech and thoughts were more logical this morning Mood/Affect: Patient reports their mood "alright", affect is congruent and co nstricted Suicidality/Homicidality: Does not endorse any suicidal or homicidal ideations intent or plan. Perceptions: Patient denies any auditory or visual hallucinations. Patient is not actively responding to internal stimuli. Though content/process: Patient does not endorse any delusions today, patient's thought process is more organized. Memory and concentration: AOX3, grossly intact for the purposes of this session. Judgment and insight: improving mildly IMPRESSIONS: Schizophrenia PLAN: -Patient continues to meet criteria for inpatient psychiatric hospitalization under involuntary status to [facility] for stabilization of psychiatric symptoms and safety. Patient is currently under court order at this time which was generated on 05/20/2019. -Medication : Will continue with Benadryl for EPS prophylaxis to 75 mg twice a day. Patient's tremor appears to have subsided today. No signs of tardive dyskinesia present. -Patient received second Haldol CHANG on 05/23/2019, 100 mg IM dose. Patient will need to receive 200 mg dose at least every 4 weeks, next dose due on 06/17/2019. -Continue with Depakote ER 1000 mg nightly and 250 daily for mood stabilization to help improve tremor. -Encouraging patient to shower regularly and attend groups. -Ativan and Haldol PRN for agitation/aggression -SW on board for discharge planning. Patient will need to be connected with [facility] for closer follow-up and long-acting injection monthly. Guardian will be meeting with assisted apparently on Thursday and patient likely be discharged afterwards.
[2019-06-06] MEDS: DIVALPROEX ER 500 MG TAB.ER.24H PO SCH (21:40)
[2019-06-07 02:50] VITALS: RESP 18
[2019-06-07] MEDS: LORazepam 1 MG TAB PO PRN ×2 (02:51→16:32)
[2019-06-07] MEDS: diphenhydrAMINE 25 MG CAP PO SCH ×2 (08:30→20:38)
[2019-06-07] MEDS: DIVALPROEX ER 250 MG TAB.ER.24H PO SCH (08:30)
[2019-06-07] MEDS: NICOTINE POLACRILEX 2 MG GUM BUCCAL PRN (09:29)
--- NOTE | 2019-06-07 09:50 | P.PN ---
Progress Note - Text Progress Note Date: 06/07/19 Interval History: Patient was seen this morning wandering the hallways and was agreeable to speak to creative writer. Patient continues to be calm and directable and was also polite with the creative writer. Patient continues to engage in conversation well and answered all questions appropriately. Patient's insight and judgment have improved along with his hygiene and grooming as he states that he showered yesterday and will shower today and also shaved as wall in the evening. He offer no overnight complaints. He also states that his tremors have improved on benadryl however it is noticed that patient does have a mild tremor in his right arm and when asked about if patient states that it is not bothering him at this time and claims that the Benadryl is helping. Today he stated that he feels "good" and is looking forward to tomorrow when he will be discharged and picked up by his sister to go to a new alf. He states that he slept well last night. At this time patient denies any auditory or visual hallucinations. He denies any suicidal or homicidal ideations intent or plan. Patient's resting tremor appears to be mild this morning and in the right arm only. No evidence of tardive dyskinesia at this time. Mental Status Exam: General Appearance: Patient appears to be older than stated age, is alert, and directable. Patient hygiene and grooming have improved. Behavior: Patient was sitting in chair with no agitation. Mild tremor in right arm only. Speech: Patient's speech and thoughts were more logical this morning, with a normal tone Mood/Affect: Patient reports their mood "good", affect is congruent and constricted Suicidality/Homicidality: Does not endorse any suicidal or homicidal ideations intent or plan. Perceptions: Patient denies any auditory or visual hallucinations. Patient is not actively responding to internal stimuli. Though content/process: Patient does not endorse any delusions today, patient's thought process is more organized. Memory and concentration: AOX3, grossly intact for the purposes of this session. Judgment and insight: improving mildly IMPRESSIONS: Schizophrenia PLAN: -Patient continues to meet criteria for inpatient psychiatric hospitalization under involuntary status to [facility] for stabilization of psychiatric symptoms and safety. Patient is currently under court order at this time which was generated on 05/20/2019. -Medication : Will continue with Benadryl for EPS prophylaxis to 75 mg twice a day. This may be increased as an outpatient if needed. Patient's tremor appears to be mild this morning and in his right arm only. No signs of tardive dyskinesia present. -Patient received second Haldol CHANG on 05/23/2019, 100 mg IM dose. Patient will need to receive 200 mg dose at least every 4 weeks, next dose due on 06/17/2019. -Continue with Depakote ER 1000 mg nightly and 250 daily for mood stabilization to help improve tremor. Depakote can be titrated down gradually as an outpatient if needed. -Encouraging patient to shower regularly and attend groups. -Ativan and Haldol PRN for agitation/aggression -SW on board for discharge planning. Patient will need to go to [facility] for closer follow-up and long-acting injection monthly. Guardian will be picking patient up tomorrow upon discharge and patient will be going to a new alf.
[2019-06-07 09:54] VITALS: BMI 24.0
[2019-06-07] MEDS: diphenhydrAMINE 50 MG/ML 1 ML VIAL IM PRN (13:13)
[2019-06-07] MEDS: DIVALPROEX ER 500 MG TAB.ER.24H PO SCH (20:39)
[2019-06-08] MEDS: NICOTINE POLACRILEX 2 MG GUM BUCCAL PRN (06:40)
[2019-06-08 07:01] VITALS: BP 103/61; PULSE 99; TEMP 97.2
[2019-06-08] MEDS: DIVALPROEX ER 250 MG TAB.ER.24H PO SCH (08:03)
[2019-06-08] MEDS: diphenhydrAMINE 25 MG CAP PO SCH (08:03)
[2019-06-08] MEDS: LORazepam 1 MG TAB PO PRN (09:30)
--- NOTE | 2019-06-08 09:59 | P.DS ---
Providers Date of admission: 05/10/19 22:17 Expected date of discharge: 06/08/19 Attending physician: Dewayne Navas MD Consults: 05/10/19 22:50 Consult Physician Routine Consulting Provider: Rosalio Kingston Consult Reason/Comments: H&P and medical Do you want consulting provider notified?: Yes Primary care physician: Rosalio Kingston - Discharge Diagnosis(es) (1) Schizophrenia Current Visit: Yes Status: Acute Priority: High (2) Nicotine dependence Current Visit: Yes Status: Acute Priority: Low Hospital Course: Admission HPI: Patient is a 49-year-old male with a history of schizophrenia and known noncompliance. Patient presented to the hospital on a pickup order as patient was acting bizarre, delusional and paranoid at his home. It was noted that patient was not taking care of himself and his home was dirty and had flies inside of it. According to report, patient initially did not allow police into his home and was refusing to come to the hospital for an evaluation. Patient was seen this morning in his bed and was somewhat directable and agreeable to speak to scientific writer in the office. Patient appeared to be bizarre, disheveled and paranoid. Patient had loose associations, was disorganized in both speech and thought and was often illogical in his answers. Patient spoke about "government invasion" and about [place] and [place] not being trustworthy. Patient listed off multiple cities within [place] and then stated "they're all [employer]". Patient became more intrusive and aggressive during the interview as it progressed and started redirecting questions back to the scientific writer, asking scientific writer if he has heard voices and if he has thoughts of wanting to harm himself. Patient had a foul odor and appeared to not be taking care of his grooming and hygiene. Patient did not comment on his sleep or appetite or mood and instead rambled. Could not assess for suicidal or homicidal ideations, auditory or visual hallucinations, substance use as patient abruptly ended interview and walked away. Hospital course: Upon admission to the unit patient was initially aggressive, disorganized and was psychotic. Patient was not agreeable to sign for medications or for voluntary treatment and needed to be petition and certified for court. Patient did receive a court order for his treatment for 60/180 days and was agreeable to take medications on the unit. Patient got along fairly well with other patients on the unit and followed unit protocol. Patient was compliant with the medications and denied any side effects throughout hospital course except for a tremor in his arms. Patient did require a higher dose of neuroleptics and mood stabilizers which contributed to the tremor however every attempt was made to decrease dose to keep patient on minimal therapeutic dose. Patient's tremor was treated with Benadryl which was titrated up to 75 mg twice a day which greatly improved his tremor. Patient did not display any signs of tardive dyskinesia. Patient was started on haloperidol by mouth and titrated up to 10 mg twice a day before patient was given Haldol D injection a total of 200 mg IM to ensure compliance which then by mouth Haldol was titrated off. Patient received his second dose of Haldol D IM on 05/23/2019 and will be due monthly for 200 mg dose. Patient also required Depakote ER which was titrated up to 250 mg daily + 1000mg nightly for mood stabilization. This dose of Depakote was also decreased to lowest therapeutic dose without causing a relapse in psychotic symptoms. Patient attempted to speak of his stressors and engaged in therapy both group and individual during his hospitalization. Patient was also seen by medical team for history and physical exam. Throughout the course of the hospitalization patient gradually improved with regards to his psychotic symptoms, aggression, mood, sleep and became future oriented with improved insight and judgment. On the day of discharge patient denied any suicidal or homicidal ideations intent or plan denied any auditory or visual hallucinations. The patient denied any access to guns or weapons. Patient denied any paranoia and did not endorse any delusions at this time. Patient does not have a significant history of substance abuse however was counseled on abstaining from all substances including alcohol and marijuana. Patient was also counseled on the medications and need for regular compliance and was encouraged to follow-up with their outpatient appointment for mental health and also for primary care. Prior to discharge a family meeting will be arranged by social worker masters to answer any questions and ensure safety upon discharge. Mental status exam: General Appearance: Patient appears to be stated age is alert, pleasant, and directable. Patient is in no acute distress and has improved hygiene and grooming Behavior: Patient is calmly seated without any agitated behavior. Speech: Patient's speech is fluent and nonpressured. Mood/Affect: Patient reports their mood is "great", affect is congruent and euthymic. Suicidality/Homicidality: Patient denies having any suicidal or homicidal ideation intent or plan. Perceptions: Patient denies any auditory or visual hallucinations. Though content/process: There is no evidence of any delusional thought content and thought process is linear and goal-directed. Memory and concentration: AOX3, grossly intact for the purposes of this session. Judgment and insight: fair, improved Prognosis: Guarded Impression: Schizophrenia Nicotine dependence Plan: -Continue with discharge today as patient has improved and stabilized psychiatrically and is not currently an imminent threat to himself and/or others. -Continue medications: Haloperidol D IM 200 mg to be given monthly. Last dose was given on 05/23/2019 and will be due for next dose on 06/17/2019. This dose may be titrated down carefully as an outpatient to help improve tremor/EPS if these symptoms are persistent to lowest therapeutic dose however patient is likely to require a higher dose to keep his psychiatric symptoms stable. Can continue Depakote ER 250 mg daily +1000 mg daily at bedtime for mood stabilization/aggressive behavior. This dose may also be looked to be decreased slightly to help with EPS/tremor. Can continue with Benadryl 75 mg twice a day for EPS prophylaxis. Patient to receive Ativan 1 mg daily when necessary for anxiety. -Patient did receive a court order which was generated on 05/20/2019 for a 60/180 day treatment order. -Patient was counseled on the need for medication compliance and appropriate follow-up at mental health and also primary care for medical issues. Patient verbalized understanding and agreed. -Social work to arrange for and conduct family meeting to ensure safety upon discharge and answer any questions/concerns. Social work also to arrange for patients follow up appointments at [facility]. Patient will be discharged to a new halfway which was selected by patient's guardian. -Patient counseled on abstaining from recreational drugs and marijuana and alcohol. Was informed/educated on the adverse effects on their physical and mental health. -Patient was instructed to return to the hospital or seek immediate medical care if their psychiatric or medical systems do worsen or reoccur. Allergies Allergy/AdvReac Type Severity Reaction Status Date / Time No Known Allergies Allergy Verified 05/10/19 23:00 Laboratory Results Valproic Acid 68.3 ug/mL 05/27/19 11:04 Vital Signs Temp 97.2 F L 06/08/19 06:19 Pulse 99 06/08/19 06:19 Resp 18 06/08/19 06:19 BP 103/61 06/08/19 06:19 Pulse Ox 98 05/10/19 19:00 Intake & Output 06/07/19 06/08/19 06/08/19 18:59 06:59 18:59 Weight 85 kg Patient Condition at Discharge: Stable Plan - Discharge Summary New Discharge Prescriptions: New LORazepam [Ativan] 1 mg PO DAILY PRN #14 tab PRN Reason: Insomnia diphenhydrAMINE [Benadryl] 75 mg PO BID #80 capsule Divalproex ER [Depakote ER] 250 mg PO DAILY #28 tab.er.24h Divalproex ER [Depakote ER] 1,000 mg PO HS #28 tab.er.24h Haloperidol Decanoate [Haldol D] 200 mg IM QMONTH #1 vial Nicotine Polacrilex [Nicorette] 2 mg BUCCAL Q4HR PRN #28 gum PRN Reason: Nicotine Cravings Discharge Medication List Divalproex ER [Depakote ER] 1,000 mg PO HS #28 tab.er.24h 06/08/19 [Rx] Divalproex ER [Depakote ER] 250 mg PO DAILY #28 tab.er.24h 06/08/19 [Rx] Haloperidol Decanoate [Haldol D] 200 mg IM QMONTH #1 vial 06/08/19 [Rx] LORazepam [Ativan] 1 mg PO DAILY PRN #14 tab 06/08/19 [Rx] Nicotine Polacrilex [Nicorette] 2 mg BUCCAL Q4HR PRN #28 gum 06/08/19 [Rx] diphenhydrAMINE [Benadryl] 75 mg PO BID #80 capsule 06/08/19 [Rx] Follow up Appointment(s)/Referral(s): Verónica MENDEZ [Other] - 06/10/19 9:00 am (Nik Evans ) [facility] [NON-STAFF] - 1 Week Patient Instructions/Handouts: How to Stop Smoking (DC), Schizophrenia (DC) Activity/Diet/Wound Care/Special Instructions: Activity and diet as tolerated. No guns or weapons in the home. Refrain from any alcohol and drugs not prescribed by physician. Please take all medications as prescribed, and attend all after care appointments as scheduled. If in need of medication refills, please go to your primary care physician, or your out patient psychiatric provider. If in crisis, please go the nearest ER for evaluation, or call the crisis line at [phone]. Discharge Disposition: HOME SELF-CARE
== END 2019-06-08 11:36 | disposition home or self-care (01) | DRG 885 ==
LOC: EC 16:43 → 3MHU 22:17 → EEVIPCON 22:17
PROVIDERS: ADMIT Psychiatry & Neurology Psychiatry; ATTEND Psychiatry & Neurology Psychiatry
DX: F23 Brief psychotic disorder (principal); E03.9 Hypothyroidism, unspecified; F17.200 Nicotine dependence, unspecified, uncomplicated; F32.9 Major depressive disorder, single episode, unspecified; F41.9 Anxiety disorder, unspecified; I10 Essential (primary) hypertension; J44.9 Chronic obstructive pulmonary disease, unspecified; R25.1 Tremor, unspecified; R45.1 Restlessness and agitation; Z91.19 Patient's noncompliance with other medical treatment and regimen; Z91.83 Wandering in diseases classified elsewhere
CPT/HCPCS: 71046; 80164; 82075; 96372; 99285

== ENCOUNTER 2019-09-06 06:27 | Emergency (ER) | payer MEDICARE ==
[2019-09-06] MEDS ORDERED: diphenhydrAMINE 50 MG/ML 1 ML VIAL IVP STA (07:24)
[2019-09-06] MEDS ORDERED: SODIUM CHLORIDE 0.9% 500 ML 500 ML IV STA (07:24)
--- NOTE | 2019-09-06 07:32 | ED ---
General Adult HPI - General Source: patient, EMS, RN notes reviewed Mode of arrival: EMS Limitations: no limitations <Juan Bobo - Last Filed: 09/06/19 09:29> <Tierra Licea - Last Filed: 09/06/19 23:29> - General Chief complaint: Anxiety Stated complaint: Tremors Time Seen by Provider: 09/06/19 06:29 - History of Present Illness Initial comments: 49-year-old male with a past medical history of hypertensio, schizophrenia presents to the emergency department for a chief complaint of "shaking." Patient has had tremors for the past 5 months. However these worsened in the past month. He states that it worsened after he started Austedo. Patient is noted to take Haldol, Depakote and already takes Cogentin. States that he gets his medication "through the lady at [facility]." States he has not talked to this person about these side effects worsening. Patient has no other complaints at this time including shortness of breath, chest pain, abdominal pain, nausea or vomiting, headache, or visual changes. (Juan Bobo) - Related Data Home Medications Medication Instructions Recorded Confirmed Benztropine Mesylate [Cogentin] 1 mg PO BID 09/06/19 09/06/19 Deutetrabenazine [Austedo] 9 mg PO BID 09/06/19 09/06/19 Divalproex ER [Depakote ER] 1,000 mg PO HS 09/06/19 09/06/19 Divalproex ER [Depakote ER] 250 mg PO DAILY 09/06/19 09/06/19 Previous Rx's Medication Instructions Recorded Haloperidol Decanoate [Haldol D] 200 mg IM QMONTH #1 vial 06/08/19 LORazepam [Ativan] 1 mg PO DAILY PRN #14 tab 06/08/19 Allergies Allergy/AdvReac Type Severity Reaction Status Date / Time No Known Allergies Allergy Verified 09/06/19 07:13 Review of Systems ROS Other: All systems not noted in ROS Statement are negative. <Juan Bobo - Last Filed: 09/06/19 09:29> ROS Other: All systems not noted in ROS Statement are negative. <Tierra Licea - Last Filed: 09/06/19 23:29> ROS Statement: Those systems with pertinent positive or pertinent negative responses have been documented in the HPI. Past Medical History Past Medical History: Hypertension History of Any Multi-Drug Resistant Organisms: None Reported Past Surgical History: No Surgical Hx Reported Past Psychological History: Anxiety, Depression, Schizophrenia Smoking Status: Current every day smoker Past Alcohol Use History: None Reported Past Drug Use History: None Reported <Juan Bobo - Last Filed: 09/06/19 09:29> General Exam Limitations: no limitations General appearance: alert, in no apparent distress Head exam: Present: atraumatic, normocephalic, normal inspection Eye exam: Present: normal appearance, PERRL, EOMI. Absent: scleral icterus, conjunctival injection, periorbital swelling ENT exam: Present: normal exam, mucous membranes moist Neck exam: Present: normal inspection, full ROM. Absent: tenderness, meningismus, lymphadenopathy Respiratory exam: Present: normal lung sounds bilaterally. Absent: respiratory distress, wheezes, rales, rhonchi, stridor Cardiovascular Exam: Present: regular rate, normal rhythm, normal heart sounds. Absent: systolic murmur, diastolic murmur, rubs, gallop, clicks Neurological exam: Present: alert Psychiatric exam: Present: normal affect, normal mood <Juan Bobo - Last Filed: 09/06/19 09:29> Course Vital Signs 09/06/19 09/06/19 06:33 09:51 Temperature 98.3 F 98.4 F Pulse Rate 86 77 Respiratory 20 19 Rate Blood Pressure 138/91 133/76 O2 Sat by Pulse 97 99 Oximetry Medical Decision Making - Lab Data Result diagrams: 09/06/19 07:58 09/06/19 07:58 <Juan Bobo - Last Filed: 09/06/19 09:29> - Lab Data Result diagrams: 09/06/19 07:58 09/06/19 07:58 <Tierra Licea - Last Filed: 09/06/19 23:29> - Medical Decision Making Patient presenting with tremors of the hands and some lip smacking. States has been ongoing for 5 months but seems he worsening. Patient is on several different psychiatric medicines including Haldol, Depakote, Austedo, Cogentin. CBC CMP unremarkable. CBC CMP are unremarkable. Depakote level is therapeutic. Patient was given IV Benadryl and had complete resolution of symptoms. I did touch base with nursing staff from his psychiatrist's office Dr. Carson. States they will be seeing him and Thursday this week. States they can follow- up with him at that time. He will return here if he has any worsening symptoms. (Juan Bobo) I was available for consultation in the emergency department. The history and physical exam were done by the midlevel provider. I was consulted for this patients care. I reviewed the case with the midlevel provider and based on their presentation of the patient, I agree with the assessment, medical decision making and plan of care as documented. Chart was dictated using [employer] dictation software. Attempts were made to correct any dictation errors however some typographical errors may persist. (Tierra Licea) - Lab Data Lab Results 09/06/19 09/06/19 Range/Units 07:58 07:58 WBC 6.4 (3.8-10.6) k/uL RBC 4.69 (4.30-5.90) m/uL Hgb 15.2 (13.0-17.5) gm/dL Hct 45.2 (39.0-53.0) % MCV 96.3 (80.0-100.0) fL MCH 32.5 (25.0-35.0) pg MCHC 33.7 (31.0-37.0) g/dL RDW 13.4 (11.5-15.5) % Plt Count 156 (150-450) k/uL Neutrophils % 65 % Lymphocytes % 24 % Monocytes % 6 % Eosinophils % 2 % Basophils % 1 % Neutrophils # 4.2 (1.3-7.7) k/uL Lymphocytes # 1.6 (1.0-4.8) k/uL Monocytes # 0.4 (0-1.0) k/uL Eosinophils # 0.1 (0-0.7) k/uL Basophils # 0.1 (0-0.2) k/uL Sodium 144 (137-145) mmol/L Potassium 4.2 (3.5-5.1) mmol/L Chloride 111 H (98-107) mmol/L Carbon Dioxide 25 (22-30) mmol/L Anion Gap 8 mmol/L BUN 10 (9-20) mg/dL Creatinine 0.73 (0.66-1.25) mg/dL Est GFR (CKD-EPI)AfAm >90 (>60 ml/min/1.73 sqM) Est GFR (CKD-EPI)NonAf >90 (>60 ml/min/1.73 sqM) Glucose 92 (74-99) mg/dL Calcium 9.9 (8.4-10.2) mg/dL Total Bilirubin 0.7 (0.2-1.3) mg/dL AST 24 (17-59) U/L ALT 32 (21-72) U/L Alkaline Phosphatase 63 (38-126) U/L Total Protein 7.4 (6.3-8.2) g/dL Albumin 4.5 (3.5-5.0) g/dL Valproic Acid 51.7 ug/mL Disposition Is patient prescribed a controlled substance at d/c from ED?: No Time of Disposition: 09:30 <Juan Bobo P - Last Filed: 09/06/19 09:29> <Tierra Licea - Last Filed: 09/06/19 23:29> Clinical Impression: Tremor Disposition: HOME SELF-CARE Condition: Good Instructions (If sedation given, give patient instructions): Extrapyramidal Symptoms (ED) Additional Instructions: Please follow-up with your appointments on this and Thursday with Dr. Carson. If you have any worsening symptoms return to the emergency department. Referrals: Rosalio Kingston MD [Primary Care Provider] - 1-2 days
[2019-09-06 08:14] LABS: Basophils # (A) 0.1 k/uL (0-0.2); Basophils % (A) 1 %; Eosinophils # (A) 0.1 k/uL (0-0.7); Eosinophils % (A) 2 %; HCT 45.2 % (39.0-53.0); HGB 15.2 gm/dL (13.0-17.5); Lymphocytes # (A) 1.6 k/uL (1.0-4.8); Lymphocytes % (A) 24 %; MCH 32.5 pg (25.0-35.0); MCHC 33.7 g/dL (31.0-37.0); MCV 96.3 fL (80.0-100.0); Mean Platelet Volume 10.5; Monocytes # (A) 0.4 k/uL (0-1.0); Monocytes % (A) 6 %; Neutrophils # (A) 4.2 k/uL (1.3-7.7); Neutrophils % (A) 65 %; Platelet Count 156 k/uL (150-450); RBC 4.69 m/uL (4.30-5.90); RDW 13.4 % (11.5-15.5); WBC 6.4 k/uL (3.8-10.6)
[2019-09-06 08:20] LABS: ALT 32 U/L (21-72); AST 24 U/L (17-59); African American GFR (CKD) >90 (>60 ml/min/1.73 sqM); Albumin 4.5 g/dL (3.5-5.0); Alkaline Phosphatase 63 U/L (38-126); Anion Gap 8 mmol/L; Blood Urea Nitrogen 10 mg/dL (9-20); Calcium 9.9 mg/dL (8.4-10.2); Carbon Dioxide 25 mmol/L (22-30); Chloride 111 mmol/L (98-107); Glucose 92 mg/dL (74-99); Non-African American GFR(CKD) >90 (>60 ml/min/1.73 sqM); Potassium 4.2 mmol/L (3.5-5.1); Sodium 144 mmol/L (137-145); Total Bilirubin 0.7 mg/dL (0.2-1.3); Total Protein 7.4 g/dL (6.3-8.2)
[2019-09-06 09:52] VITALS: BP 133/76; PULSE 77; RESP 19; TEMP 98.4
== END 2019-09-06 09:52 | disposition home or self-care (01) ==
LOC: EC 06:27
DX: R25.1 Tremor, unspecified (principal); I10 Essential (primary) hypertension; F20.9 Schizophrenia, unspecified; F32.9 Major depressive disorder, single episode, unspecified; F41.9 Anxiety disorder, unspecified; F17.200 Nicotine dependence, unspecified, uncomplicated; Z79.899 Other long term (current) drug therapy
CPT/HCPCS: 36415; 80164; 80053; 85025; 96374; 99283; J1200